=== PATIENT | female | born 1935 | race Caucasian/White ===

== ENCOUNTER 2017-05-29 13:16 | Inpatient (IN) | payer MEDICARE, OTHER ==
[~2017-05-29] VITALS: Ht 162.6 cm; Wt 112.1 kg
[~2017-05-29 13:16] MED LIST: BENZ100C8 PO; DETROL LA4 M1 PO; DIGO125T73 PO; DILT240C85 PO; FURO-129 PO; Guaifenesin PO; METO25TA6 PO; POTA20TA16 PO; PRAM0.5T3 PO; PRAV40TA PO; WARF5TAB7 PO
[2017-05-29 13:20] VITALS: BP 113/81; PULSE 98; RESP 14; O2SAT 96
--- NOTE | 2017-05-29 13:29 | ED.REPORT ---
HPI-Trauma Minor / Fall Date of Service May 29, 2017 ED Provider: Zan Hernandez DO The patient is an 82 year old female with history of atrial fibrillation on Coumadin, hypertension, hyperlipidemia, and congestive heart failure, who was brought to the emergency department by her family after she had a ground level fall at home about 1-2 hours prior to arrival. The patient states she just all of sudden fell and is unsure why. She does not believe she slipped or tripped. She did not noticed dizziness, lightheadedness, chest pain or palpitations prior to the fall. She hit her head and left shoulder on a cedar chest. She did not lose consciousness. Nursing Notes Stated Complaint: FALL, POSSIBLE BROKEN CLAVICLE Chief Complaint: Extremity Trauma Nursing Notes Reviewed: Yes Allergies: Coded Allergies: codeine (Verified Allergy, Intermediate, Rash, 01/14/16) lisinopril (Verified Allergy, Intermediate, 01/14/16) CHITO cough Scheduled Aspirin (Aspirin) 81 Mg Tablet 81 MG PO DAILY Cholecalciferol (Vitamin D3) (Vitamin D) 1,000 Unit Tablet 2,000 UNIT PO DAILY Diltiazem ER (Cardizem CD) 240 Mg Cap.er.24h 240 MG PO DAILY Glucosamine Sulfate 2Kcl (Glucosamine) 1,000 Mg Tablet 1,500 MG PO BID Metoprolol Tartrate (Metoprolol Tartrate) 25 Mg Tablet 50 MG PO BID Multivitamin (Once Daily) 1 Each Tablet 1 EACH PO DAILY Grady-3/Dha/Epa/Fish Oil (Fish Oil 1,000 mg Softgel) 1 Each Capsule 1 EACH PO BID Potassium Chloride ER (Klor-Con 10) 10 Meq Tablet 30 MEQ PO BID Pravastatin (Pravastatin) 40 Mg Tablet 40 MG PO HS Tolterodine Tartrate ER (Detrol LA) 4 Mg Capsule 4 MG PO DAILY Torsemide (Torsemide) 10 Mg Tablet Unknown Dose PO DAILY Warfarin Sodium (Warfarin Sodium) 2.5 Mg Tablet 2.5 MG PO SUN,MON,WED,FRI Warfarin Sodium (Warfarin Sodium) 5 Mg Tablet 5 MG PO ,,SAT General Time Seen by MD: 13:28 Chief Complaint Fall, Head injury, Extremity pain Hx Obtained From: Patient, Other family... Arrived By: Walk-in Onset Occurred: 1 - 4 hours ago Symptom Duration: 1 - 15 minutes Location: Head Shoulder left Quality: Painful Severity: Current: Moderate Severity: Maximum: Moderate Recent Healthcare: No recent hospitalization Similar Sx Previous: No Past Medical History Past Medical History High cholesterol Reports: Congestive heart failure, Hypertension Reports: Atrial fibrillation Past Surgical History Denies Family History Noncontributory Smoking History Never Smoker Social History Alcohol Use: "Social" Drug Use: Denies drug use Other Social History: Good social support, Local resident Ambulatory Status Independent Review of Systems Musculoskeletal: Reports: Joint pain Neurologic: Reports: Headache, Denies: Change LOC, Dizziness, Lightheaded, Syncope Complete sys rev & neg: except as marked. Cardiovascular: Denies: Chest pain, Palpitations Physical Exam Initial Vital Signs Vital Signs (First) Date Time Temp Pulse Resp B/P Pulse Ox O2 Delivery O2 Flow Rate FiO2 05/29/17 13:20 36.3 98 14 113/81 96 Room Air Initial VS: Reviewed ENT: Mucous membranes moist, Conjunctiva normal, No scleral icterus Abdomen / GI: Soft, Non-tender, No guarding, No rebound, No distention Lymphatic: No lymphadenopathy Extremities: Vascular intact, Neuro intact, No swelling, No tenderness Skin: Warm, Dry, No cyanosis Neurologic: Alert, Oriented, Nonfocal Psychiatric: Mood/affect normal, Behavior normal, Normal thought content General/Constitutional: Awake, Alert Appearance / Presentation: Positive: Uncomfortable Neck: Atraumatic, Supple, Full range of motion, No swelling, Non-tender, No midline vertebral tend Head / Eyes: Atraumatic, Normocephalic, PERRL, EOMI Respiratory / Chest: Breath sounds NL, Breath sounds = bilat, No respiratory distress, No rales, No rhonchi, No wheezing, No retractions Extensive soft tissue swelling over the left clavicle. Cardiovascular: Heart rate NL, Heart sounds NL, No gallop, No murmurs, No rubs Heart Rate / Rhythm: Positive: Irregular rhythm Interpretation & Diagnostics Lab Results Interpretation Result Diagram: 05/29/17 1845 05/29/17 1415 Test 05/29/17 14:15 05/29/17 17:30 05/29/17 18:45 White Blood Count 14.7th/mm3 (3.8-10.1) Red Blood Count 5.22mil/mm3 (3.90-5.20) Mean Corpuscular Volume 87.9fL (81-100) Mean Corpuscular Hemoglobin 29.9pg (27.0-35.0) Mean Corpuscular Hemoglobin Concent 34.0% (32.0-37.0) Red Cell Distribution Width 13.6% (12.3-15.4) Platelet Count 275bil/L (150-400) Neutrophils (%) (Auto) 80.1% (40-74) Lymphocytes (%) (Auto) 10.9% (14-46) Monocytes (%) (Auto) 7.8% (4-12) Eosinophils (%) (Auto) 0.7% (0-5) Basophils (%) (Auto) 0.3% (0-3) Prothrombin Time 39.2sec (8.1-12.5) Prothromb Time International Ratio 3.57ratio Sodium Level 138mEq/L (134-144) Potassium Level 3.5mEq/L (3.5-5.2) Chloride Level 97mEq/L (97-108) Carbon Dioxide Level 24mmol/L (18-29) Blood Urea Nitrogen 26mg/dL (8-27) Creatinine 1.16mg/dL (0.57-1.00) Estimat Glomerular Filtration Rate 64mL/min (>59) Glucose Level 143mg/dL (60-99) Calcium Level 10.4mg/dL (8.5-10.1) Magnesium Level 2.3mg/dL (1.6-2.6) Total Bilirubin 0.8mg/dL (0.0-1.2) Aspartate Amino Transf (AST/SGOT) 26U/L (0-50) Alanine Aminotransferase (ALT/SGPT) 24U/L (0-32) Alkaline Phosphatase 132U/L (25-165) Total Protein 7.9g/dL (6.4-8.4) Albumin 4.1g/dL (3.4-5.0) Urine Color Yellow (YELLOW) Urine Appearance Clear (CLEAR,HAZY) Urine pH 5.0 (5.0-8.0) Urine Specific [place] 1.010 (1.003-1.035) Urine Protein Negativemg/dL (NEG,TRACE) Urine Glucose (UA) Negativemg/dL (NEGATIVE) Urine Ketones Negativemg/dL (NEGATIVE) Urine Occult Blood Trace (NEGATIVE) Urine Nitrite Negative (NEGATIVE) Urine Bilirubin Negative (NEGATIVE) Urine Urobilinogen Normalmg/dL (NORMAL) Urine Leukocyte Esterase Small (NEGATIVE) Urine RBC 3-10/hpf (0-2) Urine WBC 6-10/hpf (0-5) Urine Epithelial Cells Few/hpf (NONE-MOD) Urine Crystals None seen (NONE SEEN) Urine Bacteria Moderate/hpf (NONE-FEW) Urine Hyaline Casts None/lpf (NONE) Urine Granular Casts None seen (NONE SEEN) Urine Waxy Casts None seen (NONE SEEN) Urine Red Blood Cell Casts None seen (NONE SEEN) Urine White Blood Cell Casts None seen (NONE SEEN) Urine Mucus None seen (None Seen) Urine Trichomonas None seen (NONE SEEN) Urine Yeast None (NONE SEEN) Urinalysis Comment None Urine Culture Reflexed Indicated Hemoglobin 15.2g/dL (12.0-15.6) Hematocrit 44.0% (35.0-46.0) ECG Interpretation ECG Interpretation: Atrial fibrillation with a rate of [address] changes Unchanged from prior Time: 14:05 Interpreted by: ED physician X-Ray Chest Interpretation Chest Xray Interpretation: IMPRESSION: 1. Acute disease is not appreciated in the lungs. 2. Probable thyroid nodule or goiter deviating the trachea from left to right, clinical correlation needed. 3. Medial left clavicular fracture. Dictated by: Jesus Griffith M.D. on 05/29/2017 at 14:16 Interpretation / Wet Read by: Interpret - Radiologist X-Ray Interpretation Xray Interpretation: IMPRESSION: Osteoporotic bones. Probable fracture medial end of left clavicle. Dictated by: Jesus Griffith M.D. on 05/29/2017 at 14:09 X-Ray Ordered: Clavicle left Interpretation / Wet Read by: Interpret - Radiologist CT Head Interpretation IMPRESSION: No acute intracranial abnormalities. Left scalp hematoma formation. Dictated by: Dilan Romero M.D. on 05/29/2017 at 13:12 Study: Head CT no contrast Interpretation / Wet Read by: Interpret - Radiologist CT Chest Interpretation IMPRESSION: 1. There is a comminuted medial left clavicle fracture, with displacement of the fracture margins by approximately 2 cm anteriorly at the fracture plane. The sternoclavicular joint appears free of traumatic disruption. 2. At time of CT scanning there is definite ongoing hemorrhage and a small area within the fracture margins, with overlying hematoma and extravasation of hemorrhage/bruising in the subcutaneous fat anterior to the left medial clavicle. The active bleeding is small in overall quantity at time of scanning, and this currently is producing a mild to moderate degree of immediate adjacent mass effect. 3. A complicating factor is the presence of a slowly enlarging large left thyroid mass, currently measuring up to 7.6 x 6.4 x 7.7 cm. This mass does not appear to have been displaced to a greater degree of rightward by the left medial clavicular fracture-related hematoma. Close clinical followup is recommended to ensure that further mass effect from expanding hematoma does not develop, given the pre-existing significant rightward deviation of the tracheal airway and at least 50% reduction in transverse dimension of the tracheal airway secondary to the thyroid mass. The degree of tracheal deviation and stenosis appears to have only slightly worsened from the comparison CT scan from 01/31/11. These findings were discussed in detail with the emergency room physician caring for the patient. Dictated by: Carlos Garcia M.D. on 05/29/2017 at 15:39 Study type: Chest CT w contrast Interpretation / Wet Read by: Interpret - Radiologist, Discussed w radiologist Re-Eval/Medical Decision Med Decision/Clinical Course 82-year-old on warfarin with a supratherapeutic INR with a fall of unclear significance and associated left clavicle fracture with a hematoma with active extravasation. Vitamin K and FFP are given to bring the INR into a more therapeutic range. Shoulder is put into a sling. Ortho is consulted as well as the patient will be admitted to medicine. Source of Hx: Old records, Family Re-Evaluation/Progress #1: Time of Eval: 14:43 Re-Evaluation/Progress Note: Rechecked the patient. Discussed results and plan for chest CT with the patient and her family. She is requesting additional meds for better pain control. Re-Evaluation/Progress #2: Time of Eval: 17:07 Re-Evaluation/Progress Note: Rechecked the patient. Discussed plan for admission with the patient and family. All questions were addressed. Consultation #1: Referral / Consult Name: Willem Lauren MD Consulted With: Surgeon Call Returned at: 16:42 Note: He recommends admitting to medicine with ortho consult. Consultation #2: Referral / Consult Name: Craig Jenkins DO Consulted With: Orthopedic Call Returned at: 17:07 Senior Animator: Will see patient, Agrees with eval, Agrees with plan Note: Agrees to consult. Consultation #3: Referral / Consult Name: Citlali Henderson DO Consulted With: Hospitalist Requested Call at: 17:07 Call Returned at: 17:53 Senior Animator: Will see patient, Agrees with eval, Agrees with plan, Accepts admit Counseled Regarding: Diagnosis, Lab results, Need for admission Discharge & Departure Impression: Primary Impression: Fall Encounter type: initial encounter Qualified Code: W19.XXXA - Unspecified fall, initial encounter Additional Impressions: Head injury Encounter type: initial encounter Qualified Code: S09.90XA - Unspecified injury of head, initial encounter Closed left clavicular fracture Encounter type: initial encounter Clavicle location: unspecified part of clavicle Fracture alignment: nondisplaced Qualified Code: S42.002A - Fracture of unspecified part of left clavicle, initial encounter for closed fracture Hematoma Warfarin-induced coagulopathy Disposition: ADMITTED TO HOSPITAL Discharge Condition All VS Reviewed: Yes Condition: Stable Referrals: Dami Oh MD (PCP) Scribe Attestation Portions of this note were transcribed by Anabella Suarez. I, Dr. Hernandez personally performed the history, physical exam and medical decision-making; I reviewed and confirmed the accuracy of the information in the transcribed note. Signed by: Joaquin Aburto, 05/29/17 at 1800. copies to: Dami Oh MD, Timothy S DO May 29, 2017 13:29 Anabella Suarez May 29, 2017 13:35
[2017-05-29] MEDS ORDERED: Ondansetron 2 mg/mL 2 mL Inj IVPUSH ONE (13:35)
--- NOTE | 2017-05-29 14:16 | DRSVH ---
PROCEDURE: CT BRAIN WITHOUT CONTRAST ([id number]) INDICATIONS: 82 year-old female with head injury on Coumadin. TECHNIQUE: Noncontrast 4.5 mm thick angled axial sections acquired from the foramen magnum to the vertex, with c oronal reformats. COMPARISON: None. FINDINGS: Image quality: Excellent. CSF spaces: Basal cisterns are patent. No extra-axial fluid collections. Ventricles are normal in size and shape. Brain: No midline shift. No intracranial masses or hemorrhage. Martel-white matter interface is norm al. There is intracranial internal carotid artery atherosclerosis. Skull and face: Calvarium and visualized facial bones are intact, without suspicious lesions. There is a left scalp localized soft tissue swelling. Sinuses: Visualized sinuses and mastoids are clear. IMPRESSION: No acute intracranial abnormalities. Left scalp hematoma formation. Dictated by: Dilan Romero M.D. on 05/29/2017 at 13:12 Approved by: Dilan Romero M.D. on 05/29/2017 at 13:15
--- NOTE | 2017-05-29 14:17 | DRSVH ---
PROCEDURE: X-RAY LEFT CLAVICLE, COMPLETE ([id number]) INDICATIONS: fall, left upper chest/clavicle pain/swelling TECHNIQUE: 2 views of the clavicle were acquired. COMPARISON: None. FINDINGS: Bones: Bones are osteoporotic. Medial end of the body of the clavicle is not be fractured with the di stal/peripheral component slightly inferiorly displaced compared to the proximal component. No suspic ious bony lesions. Soft tissues: No suspicious soft tissue calcifications. IMPRESSION: Osteoporotic bones. Probable fracture medial end of left clavicle. Dictated by: Jesus Griffith M.D. on 05/29/2017 at 14:09 Approved by: Jesus Griffith M.D. on 05/29/2017 at 14:15
--- NOTE | 2017-05-29 14:19 | DRSVH ---
PROCEDURE: X-RAY CHEST ONE VIEW ([id number]) INDICATIONS: fall, left upper chest/clavicle pain/swelling TECHNIQUE: One view of the chest was acquired. COMPARISON: None. FINDINGS: Surgical changes and devices: None. Lungs and pleura: No pleural effusions or pneumothorax. Lungs are clear. Mediastinum: Trachea is deviated suggesting an enlarged thyroid may be present on the left displacing it to the right. Mediastinal contours appear normal. Heart size is normal. Bones and chest wall: Probable fracture medial end of the left clavicle with displacement. Overlying soft tissues appear unremarkable. IMPRESSION: 1. Acute disease is not appreciated in the lungs. 2. Probable thyroid nodule or goiter deviating the trachea from left to right, clinical correlation n eeded. 3. Medial left clavicular fracture. Dictated by: Jesus Griffith M.D. on 05/29/2017 at 14:16 Approved by: Jesus Griffith M.D. on 05/29/2017 at 14:17
[2017-05-29 14:39] LABS: BASOPHILS % (AUTO) 0.3 % (0-3); EOSINOPHILS % (AUTO) 0.7 % (0-5); MONOCYTES % (AUTO) 7.8 % (4-12); Mean Corpuscular Hemoglobin 29.9 pg (27.0-35.0); Mean Corpuscular Volume 87.9 fL (81-100); NEUTROPHILS % (AUTO) 80.1 % (40-74); Platelet Count 275 bil/L (150-400)
[2017-05-29 14:50] LABS: INR 3.57 ratio
[2017-05-29 14:53] VITALS: BP 104/61; PULSE 88; RESP 24; O2SAT 99
[2017-05-29 16:00] VITALS: BP 110/67; PULSE 112; RESP 20; O2SAT 95
--- NOTE | 2017-05-29 16:10 | DRSVH ---
PROCEDURE: CT CHEST WITH CONTRAST ([id number]) INDICATIONS: trauma, eval left upper chest and clavicle TECHNIQUE: After the administration of intravenous contrast, 5 mm thick sections acquired from the pulmonary api yovany to the posterior costophrenic angles. 7 mm thick coronal and sagittal MIP reformats were acquire d. For radiation dose reduction, the following was used: automated exposure control, adjustment of mA and/or kV according to patient size. COMPARISON: [facility], CR, XR CLAVICLE COMP LT, 05/29/2017, 13:33. [facility], CT, CHEST WITH CONTRAST, 01/31/2011, 14:29. FINDINGS: Image quality: Excellent. Lungs and pleura: No definite acute air space opacities but there is mild stranding at the left lung base potentially a manifestation of atelectasis or pulmonary contusion in the setting of trauma. Ho wever, overlying left lateral lower rib fractures are not seen.. No pleural effusions or pneumothora x. Central and peripheral airways are patent and normal in caliber. Mediastinum: Heart size is normal. No pericardial effusion. No mediastinal or hilar adenopathy by size criteria but there is a large left-sided thyroid mass that was previously present during CT scan marin 01/31/11 with maximal AP and transverse dimensions of 6.1 x 6.0 cm with craniocaudad dimension of 6.7 cm. This large mass has further enlarged over the prior 6 years, now measuring up to 7.6 cm AP, 6.4 cm transverse, and 7.7 cm craniocaudad. Thoracic aorta and central pulmonary arteries are elisa l in size. Esophagus is normal in caliber. No hiatal hernia. Bones and chest wall: No suspicious bony lesions. No vertebral body compression fractures. There i s a mildly comminuted and moderately displaced medial left clavicle fracture, and during CT scanning a small amount of active extravasation of contrast enhanced blood is seen within the area of fracture , which is comprised of both bone fragments and hematoma. Overlying contusion/hematoma extends in th e subcutaneous fat in this area, centered on series 3 image 17. The active extravasation of blood is seen both on the axial and coronal 3 formation imaging, with coronal imaging demonstrating this on s eries 4 image 18. No axillary or supraclavicular adenopathy by size criteria. Thyroid gland on the right appears normal but deviated rightward. As was previously the case there is significant rightwa rd deviation of the trachea and at least a 50% reduction in the transverse dimension of the trachea a long the medial border of the left thyroid mass, only slightly worsened since 2010. Abdomen: Visualized upper abdominal solid organs appear normal. Upper abdominal bowel loops are nor mal in caliber. IMPRESSION: 1. There is a comminuted medial left clavicle fracture, with displacement of the fracture margins by approximately 2 cm anteriorly at the fracture plane. The sternoclavicular joint appears free of tra umatic disruption. 2. At time of CT scanning there is definite ongoing hemorrhage and a small area within the fracture margins, with overlying hematoma and extravasation of hemorrhage/bruising in the subcutaneous fat ant erior to the left medial clavicle. The active bleeding is small in overall quantity at time of scann ing, and this currently is producing a mild to moderate degree of immediate adjacent mass effect. 3. A complicating factor is the presence of a slowly enlarging large left thyroid mass, currently me asuring up to 7.6 x 6.4 x 7.7 cm. This mass does not appear to have been displaced to a greater degr ee of rightward by the left medial clavicular fracture-related hematoma. Close clinical followup is recommended to ensure that further mass effect from expanding hematoma islas s not develop, given the pre-existing significant rightward deviation of the tracheal airway and at l east 50% reduction in transverse dimension of the tracheal airway secondary to the thyroid mass. The degree of tracheal deviation and stenosis appears to have only slightly worsened from the comparison CT scan from 01/31/11. These findings were discussed in detail with the emergency room physician jeffry roche for the patient. Dictated by: Carlos Garcia M.D. on 05/29/2017 at 15:39 Approved by: Carlos Garcia M.D. on 05/29/2017 at 16:08
[2017-05-29] MEDS ORDERED: Phytonadione (Adult) 10 mg/1 mL Inj PO ONE (17:10)
[2017-05-29 17:42] LABS: APPEARANCE,URINE CLEAR (CLEAR,HAZY); COLOR,URINE YELLOW (YELLOW); OCCULT BLOOD,URINE TRACE (NEGATIVE); UROBILINOGEN,URINE NORMAL (NORMAL)
[2017-05-29] MEDS ORDERED: WARF5TAB7 PO (18:12)
[2017-05-29] MEDS ORDERED: MULT-666 PO (18:12)
[2017-05-29] MEDS ORDERED: TORS10TA5 PO (18:12)
[2017-05-29] MEDS ORDERED: OMEG-38 PO (18:12)
[2017-05-29] MEDS ORDERED: GLUC100016 PO (18:12)
[2017-05-29] MEDS ORDERED: ASPI-973 PO (18:12)
[2017-05-29] MEDS ORDERED: WARF2.5T82 PO (18:12)
[2017-05-29] MEDS ORDERED: CHOL100043 PO (18:12)
[2017-05-29] MEDS ORDERED: POTA10TA7 PO (18:13)
[2017-05-29 18:15] VITALS: BP 105/72; PULSE 106; RESP 20; O2SAT 94
--- NOTE | 2017-05-29 18:28 | PCM.HPMED ---
Subjective Date of Service May 29, 2017 Primary Provider: Admitting Physician: Primary Care Physician: Dami Oh MD Attending Physician: Admit Status: From the Emergency Department Chief Complaint: Ground-level fall History of Present Illness: This is a 82-year-old white female with past medical history of atrial fibrillation for which she is on Coumadin, congestive heart failure , hypertension, hyperlipidemia, restless leg syndrome is presenting after suffering a fall at home. Fall occured 1-2 hours prior to arrival. Patient does not know why or how she fell but daughter is thinking it may be that she shuffles her feet sometimes and her feet may have gotten called up in the carpet material. Patient has been falling has fallen 2 times in the last 4-5 years ago was She was crawling on the ground for 45 minutes trying to get the number to phone her son. Patient denies any recent infections, fevers, chills but states that she did not eat all day prior to this. She lives alone in a trailer with a granddaughter who lives nearby. Patient is able to walk independently at baseline patient says that right after she fell, she felt some numbness in her shoulder and felt pain thereafter. She says that she occasionally feels dizzy but denies any active chest pain, shortness of breath, diarrhea, constipation, nausea, vomiting. She denies urinary symptoms. She has no headaches. Patient denies losing consciousness during this fall. In the ER, white count is elevated at 14.7 creatinine 1.[address] changes chest x-ray showed medial left clavicular fracture, and thyroid nodular goiter deviating the trachea and left to right, osteoporosis. CT of chest was performed that showed comminuted left clavicular fracture with displacement of fracture by 2 cm anteriorly at the fracture plane. After patient had an echocardiogram in 01/16/16 that showed 60-65% ejection fraction, right ventricular dilation, 51 mm of pulmonary pressures, severe biatrial enlargement. Patient sees Dr. Najera in [place] for cardiology patient does not have a PCP but is trying to get in with us [facility] residency Review of Systems: Complete review of systems performed, pertinent positives and negatives per history of present illness, all other systems reviewed and are negative. Allergies Coded Allergies: codeine (Verified Allergy, Intermediate, Rash, 01/14/16) lisinopril (Verified Allergy, Intermediate, 01/14/16) CHITO cough Home Medications Trach patient's home medications include metoprolol tartrate 50 mg twice a day, potassium chloride 3 tablets 3 times a day, Dilaudid and 4 mg, warfarin, torsemide 10 mg twice a day Cartia 240 mg, aspirin to 81 mg, PMH Past medical history remarkable for [place] barcenas which is on Coumadin, H FBS, hypertension, hyperlipidemia Family History Mom with cancer at age 64 she also had heart disease Father at 89 of old age, he had emphysema Social History Hx Alcohol Use: No Hx Substance Use: No Hx Tobacco Use: No Smoking Status: Never Smoker Living Arrangement: Alone Exam Vital Signs Vital Sign - Last Date Time Temp Pulse Resp B/P Pulse Ox O2 Delivery O2 Flow Rate FiO2 05/29/17 14:53 88 24 104/61 99 Room Air 05/29/17 13:20 36.3 Exam General: NAD, sitting up in bed HEENT: NCAT, the case back over her clavicle Eyes: [place] conjunctivae. No ptosis, PERRL Neck: No masses, trachea midline, left-sided thyromegaly, large bulging hematoma over the medial left clavicle. Bruising is noted Lungs: CTA with normal respiratory effort, no crackles or wheezes anteriorly CV: Tachycardic, no murmurs/rubs/gallops, normal PMI GI: Soft, non-tender with no hepatosplenomegaly MSK: Normal gait and station, no digital cyanosis Skin: Warm and dry. No rash, lesions or ulcers Psych: A&O X3, with appropriate affect Lab and Diagnostics Result Diagram: 05/29/17 1415 05/29/17 1415 X-Rays, CTs and MRIs IMPRESSION: 1. There is a comminuted medial left clavicle fracture, with displacement of the fracture margins by approximately 2 cm anteriorly at the fracture plane. The sternoclavicular joint appears free of traumatic disruption. 2. At time of CT scanning there is definite ongoing hemorrhage and a small area within the fracture margins, with overlying hematoma and extravasation of hemorrhage/bruising in the subcutaneous fat anterior to the left medial clavicle. The active bleeding is small in overall quantity at time of scanning , and this currently is producing a mild to moderate degree of immediate adjacent mass effect. 3. A complicating factor is the presence of a slowly enlarging large left thyroid mass, currently measuring up to 7.6 x 6.4 x 7.7 cm. This mass does not appear to have been displaced to a greater degree of rightward by the left medial clavicular fracture-related hematoma. Close clinical followup is recommended to ensure that further mass effect from expanding hematoma does not develop, given the pre-existing significant rightward deviation of the tracheal airway and at least 50% reduction in transverse dimension of the tracheal airway secondary to the thyroid mass. The degree of tracheal deviation and stenosis appears to have only slightly worsened from the comparison CT scan from 01/31/11. These findings were discussed in detail with the emergency room physician caring for the patient. Dictated by: Carlos Garcia M.D. on 05/29/2017 at 15:39 Approved by: Carlos Garcia M.D. on 05/29/2017 at 16:08 PROCEDURE: CT BRAIN WITHOUT CONTRAST ([id number]) INDICATIONS: 82 year-old female with head injury on Coumadin. IMPRESSION: No acute intracranial abnormalities. Left scalp hematoma formation. Dictated by: Dilan Romero M.D. on 05/29/2017 at 13:12 Approved by: Dilan Romero M.D. on 05/29/2017 at 13:15 PROCEDURE: X-RAY CHEST ONE VIEW ([id number]) IMPRESSION: 1. Acute disease is not appreciated in the lungs. 2. Probable thyroid nodule or goiter deviating the trachea from left to right, clinical correlation needed. 3. Medial left clavicular fracture. Dictated by: Jesus Griffith M.D. on 05/29/2017 at 14:16 Approved by: Jesus Griffith M.D. on 05/29/2017 at 14:17 PROCEDURE: X-RAY LEFT CLAVICLE, COMPLETE ([id number]) INDICATIONS: fall, left upper chest/clavicle pain/swelling IMPRESSION: Osteoporotic bones. Probable fracture medial end of left clavicle. Dictated by: Jesus Griffith M.D. on 05/29/2017 at 14:09 Approved by: Jesus Griffith M.D. on 05/29/2017 at 14:15 12-lead ECG Nonspecific ST changes, she is tachycardic in the monitor with rhythm between 103 to 113, regular rhythm regular rhythm Cardiac Echo Impressions Reason For Study: HISTORY OF CONGESTIVE HEART FAILURE Ordering Physician: HOSPITALIST XIMENA Performed By: Misha Altamirano Referring Physician: Dr. Dami Oh Interpretation Summary The left ventricle is normal in size. Left ventricular systolic function is normal without focal wall motion abnormalities. The ejection fraction is estimated to be 60-65%. The right ventricle is borderline dilated. The right ventricular systolic function is normal. The right ventricular systolic pressure is estimated at 51 mmHg assuming a right atrial pressure of 8 mm Hg. There is severe biatrial enlargement. There is mild tricuspid regurgitation. There is mild pulmonic regurgitation. There is no other significant valvular heart disease. The aortic root is normal size. Reading Physician:PM Assessment & Plan This is a 82-year-old female with history of prior falls, cardiac history presenting today after suffering a fall ground-level fall due to unknown reasons , she has shown evidence of comminuted left clavicular fracture with displacement of fracture margin by 2 cm anteriorly at the fracture plane #Comminuted left clavicular fracture with displacement of fracture margin by 2 cm, present on admission -- Pain control with morphine 2-4 mg every 4 hours when necessary -- Oxycodone 4 mg every 4 hours when necessary -- Consult A orthopedic surgery, Dr. Craig Jenkins will see the patient tomorrow a.m. #Thyroid nodular goiter deviating the trachea, present on admission -- I have asked Dr. Garcia to consult trauma surgeon Dr. Lorenz from the ER #chronic atrial fibrillation, present on admission, treatment ongoing. -Check INR upon arrival to the floor and then in the am, she is given vitamin K 5 mg by mouth, 2 units of FFP in the ER -Continue home medication Cardizem #Leukocytosis likely due to lytic or mucoid reaction #chronic hypertension, present on admission, uncontrolled. -Continue patient's home medication Cardizem, metoprolol 50 mg twice a day #HF PEF chronic active -- Continue torsemide 10 mg by mouth once a day, potassium supplementation -- Continue statin, metoprolol #Chronic hyperlipidemia active -- Continue home medication pravastatin. Pain Evaluation: Adequate Pain Control Resuscitation Status: CPR: Attempt Resuscitation Time spent 45 minutes Citlali Henderson DO May 29, 2017 18:22
[2017-05-29] MEDS ORDERED: Alum-Mag Hydrox-Simeth 30 mL Suspension PO PRN (18:30)
[2017-05-29] MEDS ORDERED: Polyethylene Glycol (PEG) 17 Gm Powder PO PRN (18:30)
[2017-05-29] MEDS ORDERED: Ondansetron 2 mg/mL 2 mL Inj IVPUSH PRN (18:30)
[2017-05-29 20:23] VITALS: BP 121/41; PULSE 105; RESP 20; O2SAT 96
[2017-05-29 20:46] VITALS: BP 102/67; PULSE 91; RESP 20; O2SAT 92
[2017-05-29 21:01] LABS: INR 1.76 ratio
[2017-05-30] VITALS (8 sets, daily range): BP systolic 113–138; BP diastolic 61–79; PULSE 70–121; RESP 16–24; O2SAT 91–99
--- NOTE | 2017-05-30 01:32 | NUR ---
ADMIT NOTE Pt arrived to [facility] Room 3021 approx 2024. Pt alert and oriented, arrived w/ family. Pt able to ambulate from to bed, SBA. Pt placed on remote telemetry, property assessment monitor notified. Pt is comfortable, pain is "4" when laying down, "a whole other story when I move" per pt. Pt has ice pack to Left chest. Significant bruising and swelling to left upper chest, as well as some bruising on upper left back. Pt given evening PO medications. RT arrived to assist pt w/ setting up home CPAP, uses 2L at NOC per pt. Continue to monitor. Call light in reach. Bed alarm on. Intentional rounding.
--- NOTE | 2017-05-30 02:58 | CONS ---
[address] [address] CONSULTATION REPORT PATIENT: DEANNA MCQUEEN : 1935 MR#: [id number] ADMIT: 05/29/2017 JOB ID: [id number] DATE OF SERVICE: 05/29/2017 CONSULTATION REQUESTED BY: Citlali Henderson D.O. HISTORY OF PRESENT ILLNESS: The patient is an eight pleasant 82-year-old female. She has atrial fibrillation and is on anticoagulation. She fell and suffered a comminuted left clavicular fracture. She had a CT scan, which showed an incidental thyroid goiter causing tracheal compression. She told me that she is on thyroid replacement although it is not listed on her med reconciliation form. She has no history of stridor or difficulty breathing, voice change or dysphagia. Her CT scan of her chest shows slowly enlarging thyroid goiter measuring 7 x 6 x 6.4 x 7. There is tracheal deviation to the right. She has never had thyroid surgery. PAST MEDICAL HISTORY: Illnesses: 1. Comminuted left clavicular fracture. 2. Anticoagulation status. 3. Atrial fibrillation. 4. Right ventricular dilatation. 5. Severe biatrial enlargement. 6. Obstructive sleep apnea, uses a CPAP. SOCIAL HISTORY: She lives alone. She denies alcohol or tobacco. ALLERGIES: 1. CODEINE. 2. LISINOPRIL. REVIEW OF SYSTEMS: Otherwise negative. PHYSICAL EXAMINATION: GENERAL: Pleasant, alert. She has her CPAP machine on, no distress. VITAL SIGNS: BMI 40.5, temperature 36.9, brachial blood pressure 102/67, pulse 91, respiratory rate 20, O2 sat is 92%. HEENT: PERRLA, EOMI. No exophthalmos. NECK: There is a left neck mass and I do think that I can appreciate deviation of the trachea to the right. LYMPH NODES: I do not appreciate any cervical adenopathy. LEFT CLAVICLE: Covered by a large ice pack. LUNGS: Clear. CARDIAC EXAM: Regular rhythm. EXTREMITIES: No edema. SKIN: No rashes or jaundice. IMPRESSION: Large left thyroid nodule. It has been there a long time. It is asymptomatic. She is unremarkable aware of it. Nothing emergent needs to be done regarding it. PLAN: After discharge she should be given an appointment to follow up with me in my office for further discussion.
[2017-05-30 04:52] LABS: BASOPHILS % (AUTO) 0.2 % (0-3); EOSINOPHILS % (AUTO) 1.4 % (0-5); Mean Corpuscular Hemoglobin 30.1 pg (27.0-35.0); Mean Corpuscular Volume 88.9 fL (81-100); Platelet Count 241 bil/L (150-400)
[2017-05-30 05:17] LABS: INR 1.54 ratio
--- NOTE | 2017-05-30 05:42 | NUR ---
PAIN Pt has c/o intermittent "achey" pain in left chest. Pt states ice has been effective. Pt has been given prn po tylenol and oxycodone. Pt has rated pain "4-7", and "no pain" during post pain medication administration assessment. Edema continues to left chest, bruising has become more prominent than initial assessment. Continue to monitor. Call light in reach. Bed alarm on. Intentional rounding.
[2017-05-30] MEDS: Diltiazem CD 240 mg ER24 Capsule PO SCH (08:05)
[2017-05-30] MEDS: Tolterodine ER 4 mg ER24 Capsule PO SCH (08:05)
--- NOTE | 2017-05-30 12:29 | CONS ---
[address] [address] CONSULTATION REPORT PATIENT: DEANNA MCQUEEN : 1935 MR#: [id number] ADMIT: 05/29/2017 JOB ID: [id number] DATE OF SERVICE: 05/30/2017 ORTHOPEDIC CONSULTATION: REASON FOR CONSULTATION: To initiate fracture care for the patients medial clavicle shaft fracture. CHIEF COMPLAINT: Left shoulder pain. HISTORY OF PRESENT ILLNESS: This is a pleasant 82-year-old, [id number] female that presents with a day long history of left shoulder pain, mainly overlying the medial clavicle. She was walking out of the bathroom. She is unsure of exactly what happened. She was dizzy and hit the cedar chest directly onto her anterior shoulder. She had pain and swelling and presented to the emergency department. X-rays were obtained at that time that did not demonstrate much for any fractures or dislocations. A CT next was obtained due to the amount of swelling. She demonstrates a mildly displaced medial clavicular shaft fracture with hematoma. Orthopedics was thus consulted. The patient did demonstrate a supratherapeutic INR and thus the emergency department physician did give her some medications to lower that in hopes to decrease the amount of bleeding she was getting to the anterior aspect of the chest. The patient is doing well. She states that overnight the swelling has decreased significantly. She has pain to the medial aspect of the clavicle. There was a sling that was originally placed but she no longer has the sling on currently in the room. She denies any numbness or tingling. She denies any other associated injuries. PAST MEDICAL HISTORY: Hypertension, hyperlipidemia, COPD, sleep apnea, and chronic AFIB. PAST SURGICAL HISTORY: Hysterectomy, appendectomy, partial thyroidectomy, right total knee arthroplasty. FAMILY HISTORY: Noncontributory. SOCIAL HISTORY: The patient denies any tobacco utilization. Drinks occasionally. Denies any illicit drug use. Lives at home by herself but her granddaughter is present on the property and recently moved onto the property. MEDICATIONS: Please see electronic medical record for a list of the patient's medications. ALLERGIES: LISINOPRIL, CODEINE. REVIEW OF SYSTEMS: The patient denies any fevers, sweats, chills, chest pain, shortness of breath nausea, vomiting, diarrhea. Complains mainly of left medial clavicular pain as described in the history of present illness. PHYSICAL EXAMINATION: General: The patient is alert, oriented, in no apparent distress. HEENT: Normocephalic, atraumatic. Extraocular movements intact. Nares patent. Lungs: No audible wheezes. No signs of respiratory distress. Neuro: Cranial nerves 2-12 are intact. Extremities: Gross observation of the patient's left shoulder: She has some mild ecchymosis and swelling to the medial clavicle, with tenderness to palpation of the medial clavicle. She demonstrates palpable distal radial and ulnar pulses and has intact sensation in the axillary, median, and radial ulnar nerve distribution. Range of motion of the shoulder is deferred secondary to the pain to the medial clavicle. There is no tenderness to the acromioclavicular joint or surrounding the elbow, wrist, or hand, including the distal radius and ulna and the anatomic snuffbox. DIAGNOSTIC STUDIES: Two views of the patient's chest, as well as the clavicle, in a CT demonstrates a mildly comminuted medial clavicular shaft fracture with mild anterior translation of the clavicle. IMPRESSION: Left medial shaft clavicle fracture. PLAN: Discussed with the patient as well as her granddaughter the treatment plan as the fracture is only mildly displaced and should heal well with conservative treatment. I would like her to be in the sling at all times except for when bathing. She is to follow up in the office in two weeks. We will repeat x-rays of the clavicle at that time and likely start initiating range of motion of the elbow at that time. She will be in the sling for six weeks from her injury date before initiating any shoulder range of motion exercises. While in the hospital I would like her to have ice placed overlying the medial clavicle for 30 minutes every 3 hours while awake.
[2017-05-30 14:10] LABS: INR 1.25 ratio
[2017-05-30] MEDS: 0.9% Sodium Chloride 1,000 ML IV SCH (14:25)
--- NOTE | 2017-05-30 16:10 | NUR ---
Social work note - Initial Assessment Yenifer Melo is a 82 yr old admitted for fall - clavicle fx and hematoma. EMR reviewed: Pt has [employer] plan insurance, her PCP is Dr Oh. DPOA paperwork in EMR. No LTC or VA benefits. Readmit score is 3. See attached CM initial assessment. COLORIST FORMULATOR met with pt - introduced D/C planning and explained SW role. Pt lives at home in [place]. Her grand daughter is staying with her for help and her son lives a block away. She is independent at baseline - uses no DME. She does not drive. She has used [facility] in the past - does not think it would be necessary at this time. She plans to d/c home with family when medically stable - MD anticipates 2-3 per multidisciplinary rounds. COLORIST FORMULATOR will continue to follow for home needs. Plan: Home with family in [place] Addendum: 05/30/17 at 1614 by DAVION GUY SS Amended: Links added.
[2017-05-30] MEDS ORDERED: MeTOProlol 1 mg/mL 5 mL Inj IVPUSH ONE (17:55)
--- NOTE | 2017-05-30 18:19 | CONS ---
[address] [address] CONSULTATION REPORT PATIENT: DEANNA MCQUEEN : 1935 MR#: [id number] ADMIT: 05/29/2017 JOB ID: [id number] DATE OF SERVICE: REFERRING PHYSICIAN: Dr. Henderson, hospitalist. REASON FOR CONSULTATION: Evaluation for bleeding disorder. HISTORY OF PRESENT ILLNESS: The patient is a very pleasant, 82-year-old female admitted to [facility] on May 29, 2017 after she had a fall in her bathroom. The patient was not aware of any loss of consciousness, but she also states that she is not sure. She was able to call for assistance which led to her evaluation in the emergency department. The patient presented with left shoulder and clavicle pain. Admitting imaging studies, including CT of the chest, identifying a comminuted medial left clavicular fracture with positive extravasation of small amounts of blood reported. Also reported was an enlarging thyroid mass as compared to a previous CT scan done six years ago, measuring approximately 76 x 64 x 77 mm, with significant rightward deviation of the trachea and 50% reduction in the transverse dimension of the trachea. The lesion has grown approximately [address] scan dated January 31, 2011. CT of the brain also done on admission reporting no acute abnormalities, left scalp hematoma. Laboratory evaluation reporting a PT and INR of 39.2 and 3.57, respectively. The patient is currently on Coumadin for chronic atrial fibrillation. Admitting CBC reporting a white blood cell count of 14.7, hemoglobin of 15.4, hematocrit of 45.9, and platelet count of 275. MCV, MCH and MCHC normal at 87, 29, and 34, respectively. The patient was subsequently given FFP in the emergency department to correct her hypercoagulability. Subsequent INR on May 30, 2017, at 1.25. In addition, hemoglobin has been watched serially over the past 24 hours, ingrid down to 12.5 on May 30 at 0100, improving to 13.8 on May 30 at 13:45. The patient has not received any blood transfusions while in the hospital. Clinically, she is feeling well. Sitting up in bed, eating her dinner. Her affect was appropriate. She states that she has had a prior episode of a fall while in the hallway. She does not remember any specifics of the incident. Otherwise, she is not aware of any unusual bruising or bleeding; specifically, any dark tarry stools, bloody noses or bleeding when she brushes her teeth. She has had multiple surgeries and dental procedures and denies any awareness of any bleeding complications or need for blood transfusions. REVIEW OF SYSTEMS: The remainder of her review of systems today was otherwise negative. ALLERGIES: 1. LISINOPRIL. 2. CODEINE. PRESCRIPTION MEDICATIONS: Include: 1. Coumadin 2.5 mg, Thursday, Thursday, Thursday and Thursday, and 5 mg all other days. 2. Diltiazem 240 mg daily. 3. Metoprolol 25 mg daily. 4. Pravastatin 40 mg at night. 5. Aspirin 81 mg daily. 6. Torsemide 10 mg daily. 7. Tolterodine 4 mg daily. PAST MEDICAL HISTORY: Significant for: 1. Elevated INR at on May 30 as described above. Workup underway. 2. Chronic atrial fibrillation with the CHADS2 score of 2, giving her an ischemic stroke rate per year of 4.2%. Her last echocardiogram was on January 16, 2016, reporting an EF of 60% to 65% with an RVSP markedly elevated at 51 mmHg. There was thereby atrial enlargement as well as some mild tricuspid regurg. 3. Hypertension. 4. Hyperlipidemia. 5. COPD. The patient is a never smoker. Her diagnosis was made by "a specialist in [place]." She remembers undergoing a PFT test. 6. Sleep apnea. 7. Thyroid mass. PAST SURGICAL HISTORY: Significant for hysterectomy and appendectomy. SOCIAL HISTORY: She lives alone independently with good family support. Denies any tobacco history. Occasionally drinks alcohol. FAMILY HISTORY: She has four children. She is not aware of any family history of cancer, blood disorders or bleeding disorders. PHYSICAL EXAMINATION: Vital signs today reporting a weight of 95.4 kg, a blood pressure of 138/79, temperature 36, pulse is 121, respiratory rate is 16 and she is saturating at 92% on room air. She is A and O x3. In good spirits overall. Affect appropriate. Palpation of the neck with at least a 3 cm left thyroid nodule appreciated. No lower extremity swelling seen. No bruising or bleeding in the skin noted. ADDITIONAL LABORATORY DATA: Dated May 29, 2017, reporting a sodium 138, potassium 3.5, serum creatinine 1.16. Calcium 10.4, AST 26, ALT 24, alk phos 132. ASSESSMENT AND PLAN: The patient is a very pleasant, 82-year-old female suffering a comminuted left clavicle fracture on May 29, 2017, after a fall in her bathroom. A small extravasation of blood was seen on admitting CT scan of the chest, and patient presented with a supratherapeutic INR of 3.57 on admission. The patient is currently on Coumadin for chronic atrial fibrillation with a CHADS score of 2. The patient was given FFP in the emergency department with normalization of her INRs currently at 1.25. She is back on her Coumadin at this time. The patient's past medical history and review of systems is significant for the absence of any bleeding complications after surgical procedures, including dental. In addition, the patient's family history is unremarkable for any bleeding disorder. The patient's hemoglobin over the past 24-36 hours has stabilized, all within the normal range. The patient unlikely has an underlying bleeding diathesis. Would recommend repeating a PT, INR and a PTT on May 31, 2017, to evaluate her vitamin K coagulation factors. A thrombin time to evaluate her ability to convert her formed thrombin as well as a fibrinogen level. Further evaluation of her platelet function disorder can be made as an outpatient, if appropriate. In regards to her anticoagulation, given her CHADS2 score of 2, with a 4.2% risk of stroke, would recommend obtaining an MRI/MRA brain. If normal, hold her Coumadin for the next week. Continue to follow INR as an outpatient. Vitamin K supplement if needed. Finally, the patient has a significant enlarging left thyroid mass which is causing not only right tracheal deviation but a 50% reduction in caliber. Tissue diagnosis and surgical management. If the biopsy can be done in-house, that would be convenient. ADITHYA
--- NOTE | 2017-05-30 18:43 | NUR ---
Behavior Pt was found out of bed with bed alarm sounding, when asking pt if ok, pt stated, "I need to find out where my family is." When asked is pt knows current location, pt stated "at your house." This RN and INGOT CASTER got pt back to bed, and reeducated on using call light. Pt was reoriented and realized the confusion, let pt know it was ok and not to worry. Will continue to monitor.
[2017-05-31] VITALS (9 sets, daily range): BP systolic 99–142; BP diastolic 61–90; PULSE 84–124; RESP 18–20; O2SAT 91–96
--- NOTE | 2017-05-31 00:15 | PCM.PNMED ---
Subjective Date of Service May 30, 2017 Subjective Patient is seen and examined, her grand daughter is present in the room, patient states pain is well controlled, wants to know when she can go home. H&H dropped by 3 points this am but stable. She is seen by Dr. Lauren and Dr. Jenkins so far. Exam Vital Signs Vital Sign - Last Date Time Temp Pulse Resp B/P Pulse Ox O2 Delivery O2 Flow Rate FiO2 05/30/17 08:59 36.4 113 20 117/74 92 Room Air 05/30/17 04:34 2.00 Intake and Output 05/29/17 05/29/17 05/30/17 Cumulative From/Thru 15:00 23:00 07:00 05/29/17 13:20 - 05/30/17 06:13 Intake Total 614 ml 150 ml 764 ml Output Total 400 ml 400 ml Balance 614 ml -250 ml 364 ml Intake Oral 150 ml 150 ml IV Total 614 ml 614 ml Output Urine Total 400 ml 400 ml Exam General: NAD, sitting up in bed HEENT: NCAT, the case back over her clavicle Eyes: [place] conjunctivae. No ptosis, PERRL Neck: No masses, trachea midline though imaging showed concern, left-sided thyromegaly, hematoma over the medial left clavicle improved. Bruising is noted Lungs: CTA with normal respiratory effort, no crackles or wheezes anteriorly CV: Tachycardic, no murmurs/rubs/gallops, normal PMI GI: Soft, non-tender with no hepatosplenomegaly MSK: Normal gait and station, no digital cyanosis Skin: Warm and dry. Psych: A&O X3, with appropriate affect IVs and Medications Medications Reviewed: Medications were reviewed in detail Lab and Diagnostics Result Diagram: 05/30/17 0911 05/30/17 0420 X-Rays, CTs and MRIs IMPRESSION: 1. There is a comminuted medial left clavicle fracture, with displacement of the fracture margins by approximately 2 cm anteriorly at the fracture plane. The sternoclavicular joint appears free of traumatic disruption. 2. At time of CT scanning there is definite ongoing hemorrhage and a small area within the fracture margins, with overlying hematoma and extravasation of hemorrhage/bruising in the subcutaneous fat anterior to the left medial clavicle. The active bleeding is small in overall quantity at time of scanning , and this currently is producing a mild to moderate degree of immediate adjacent mass effect. 3. A complicating factor is the presence of a slowly enlarging large left thyroid mass, currently measuring up to 7.6 x 6.4 x 7.7 cm. This mass does not appear to have been displaced to a greater degree of rightward by the left medial clavicular fracture-related hematoma. Close clinical followup is recommended to ensure that further mass effect from expanding hematoma does not develop, given the pre-existing significant rightward deviation of the tracheal airway and at least 50% reduction in transverse dimension of the tracheal airway secondary to the thyroid mass. The degree of tracheal deviation and stenosis appears to have only slightly worsened from the comparison CT scan from 01/31/11. These findings were discussed in detail with the emergency room physician caring for the patient. Dictated by: Carlos Garcia M.D. on 05/29/2017 at 15:39 Approved by: Carlos Garcia M.D. on 05/29/2017 at 16:08 PROCEDURE: CT BRAIN WITHOUT CONTRAST ([id number]) INDICATIONS: 82 year-old female with head injury on Coumadin. IMPRESSION: No acute intracranial abnormalities. Left scalp hematoma formation. Dictated by: Dilan Romero M.D. on 05/29/2017 at 13:12 Approved by: Dilan Romero M.D. on 05/29/2017 at 13:15 PROCEDURE: X-RAY CHEST ONE VIEW ([id number]) IMPRESSION: 1. Acute disease is not appreciated in the lungs. 2. Probable thyroid nodule or goiter deviating the trachea from left to right, clinical correlation needed. 3. Medial left clavicular fracture. Dictated by: Jesus Griffith M.D. on 05/29/2017 at 14:16 Approved by: Jesus Griffith M.D. on 05/29/2017 at 14:17 PROCEDURE: X-RAY LEFT CLAVICLE, COMPLETE ([id number]) INDICATIONS: fall, left upper chest/clavicle pain/swelling IMPRESSION: Osteoporotic bones. Probable fracture medial end of left clavicle. Dictated by: Jesus Griffith M.D. on 05/29/2017 at 14:09 Approved by: Jesus Griffith M.D. on 05/29/2017 at 14:15 12-lead ECG Nonspecific ST changes, she is tachycardic in the monitor with rhythm between 103 to 113, regular rhythm regular rhythm Cardiac Echo Impressions Reason For Study: HISTORY OF CONGESTIVE HEART FAILURE Ordering Physician: HOSPITALIST SV Performed By: Misha Altamirano Referring Physician: Dr. Dami Oh Interpretation Summary The left ventricle is normal in size. Left ventricular systolic function is normal without focal wall motion abnormalities. The ejection fraction is estimated to be 60-65%. The right ventricle is borderline dilated. The right ventricular systolic function is normal. The right ventricular systolic pressure is estimated at 51 mmHg assuming a right atrial pressure of 8 mm Hg. There is severe biatrial enlargement. There is mild tricuspid regurgitation. There is mild pulmonic regurgitation. There is no other significant valvular heart disease. The aortic root is normal size. Reading Physician:PM Assessment & Plan This is a 82-year-old female with history of prior falls, cardiac history presenting today after suffering a fall ground-level fall due to unknown reasons , she has shown evidence of comminuted left clavicular fracture with displacement of fracture margin by 2 cm anteriorly at the fracture plane #Comminuted left clavicular fracture with displacement of fracture margin by 2 cm, present on admission -- Pain control with morphine 2-4 mg every 4 hours when necessary -- Oxycodone 4 mg every 4 hours when necessary -- Consulted orthopedic surgery, contacted Dr. Jenkins in the am, Dr. Craig Jenkins has seem the patient. he says he will recommend non-operative o/p management only. -- Consulted Dr. Tanmay George from Hem/Onc, he has seen the patient. Discussed coumadin with him, he says to hold for 1 week. Order PT/PTT/fibrinogen and thrombin labs. He does not feel she has a bleeding diathesis. -- Dr. George also recommends an MRI as pt may have been syncopal prior to experiencing the falls, ordered the MRI #Thyroid nodular goiter deviating the trachea, present on admission -- I have asked Dr. Garcia to consult trauma surgeon Dr. Willem Lauren from the ER -- Dr. Willem Lauren has seen the patient, states he will f/u with her in his office for thyroid. #chronic atrial fibrillation, present on admission, treatment ongoing. -Check INR upon arrival to the floor and then in the am, she is given vitamin K 5 mg by mouth, 2 units of FFP in the ER -Continue home medication Cardizem -- INR is 1.55 this am, gave her PO 25 mg and IV 5 mg Metoprolol to control rate , pel tele 120's some times -- Clearly needs an increase in home metoprolol, she was on digoxin in the past , unclear why it was discontinued. Possible tachy-beverley syndrome #Leukocytosis likely due to leukomoid reaction #chronic hypertension, present on admission, uncontrolled. -Continue patient's home medication Cardizem, metoprolol will need to be titrated up to 75 mg twice a day -- Monitor for heart block #HF PEF chronic active -- Continue torsemide 10 mg by mouth once a day, potassium supplementation -- Continue statin, metoprolol #Chronic hyperlipidemia active -- Continue home medication pravastatin. Disposition: home d/c if H&H stable, hold coumadin for one week, f/u with Drs. Jenkins and Kelechi as o/p Pain Evaluation: Adequate Pain Control Resuscitation Status: CPR: Attempt Resuscitation Time spent 30 min Citlali Henderson DO May 30, 2017 10:07
--- NOTE | 2017-05-31 06:27 | NUR ---
Tele/Pain Tele: Afib HR 114 with occasional PVCs per ekg monitor. Pt c/o discomfort to rt shoulder area and refused pain meds at this time instead requesting an ice pack. Bruising to LT arm continues without drainage noted. Pt needs IV access to RT arm and d/c of LT arm IV so that wearing LT arm sling is more comfortable. IV therapy contacted due to difficulty in placing IV. Care continues.
[2017-05-31 06:47] LABS: Mean Corpuscular Hemoglobin 29.4 pg (27.0-35.0); Mean Corpuscular Volume 89.8 fL (81-100)
[2017-05-31 07:08] LABS: INR 1.06 ratio
[2017-05-31] MEDS: Diltiazem CD 240 mg ER24 Capsule PO SCH (08:28)
[2017-05-31] MEDS: Tolterodine ER 4 mg ER24 Capsule PO SCH (08:30)
[2017-05-31] MEDS: 0.9% Sodium Chloride 1,000 ML IV SCH ×2 (09:52→23:13)
--- NOTE | 2017-05-31 10:46 | DRSVH ---
PROCEDURE: MRI STROKE PROTOCOL ([id number]) Pre- and post-contrast brain MRI, non-contrast brain MR angiogram, pre- and postcontrast neck MR joel ogram INDICATIONS: syncope, r/o infarct TECHNIQUE: Brain: Noncontrast axial T1 spin echo, axial T2 fast spin echo, sagittal and axial FLAIR, coronal T2 fast spin echo, axial gradient echo, axial diffusion and ADC through the brain. After the administr ation of contrast, axial 3D VIBE of the cranial vasculature and brain. Brain MRA: Non-contrast 3-D time of flight MR angiogram, with multiple izmsluj-krpvdbxqi-awmnglgoin (MIP) reformats performed. Neck MRA: Axial and sagittal TruFISP through the neck. Coronal dynamic MR angiogram during administ ration of contrast in the arterial and venous phases, with 3-dimenstional skszcig-fcxbcyqrk-utcexwnkv n (MIP) reformats constructed from subtraction images. COMPARISON: [facility], CT, CT CHEST W CON, 05/29/2017, 15:25. [facility], C T, CT BRAIN WO CON, 05/29/2017, 13:58. FINDINGS: Image quality: Excellent. BRAIN: CSF spaces: Ventricles are normal in size and shape. Basal cisterns are patent. No extra-axial flu id collections. Brain: No intracranial bleeds or mass effects. Martel-white matter interface is normal. Diffusion we ighted images show no acute ischemic insults. Brainstem appears normal. Normal intravascular flow v oids are present. No abnormal intracranial enhancement. Skull and face: Calvarial marrow signal is normal. Orbits appear normal. Sinuses: Sinuses and mastoids are clear. BRAIN MR ANGIOGRAM: Anterior circulation: Intracranial internal carotid arteries are normal in size and enhancement. Th e flow within the paired anterior cerebral arteries is normal and symmetric. The flow within the mid dle cerebral arteries is normal and symmetric. The anterior communicating artery is seen. No stenos es, occlusions, or aneurysms. Posterior circulation: The visualized portions of the vertebral arteries demonstrate normal caliber, and join to form a normal appearing basilar artery. The flow within the posterior cerebral arteries is normal and symmetric. No stenoses, occlusions, or aneurysms. NECK MR ANGIOGRAM: Carotids: Great vessels demonstrate a conventional anatomy as they arise from the aortic arch. The origins of the common carotid arteries appear patent. The calibers and courses of both common caroti d arteries are normal. The bifurcation regions appear normal bilaterally. The internal carotid balaji ade demonstrate normal course and caliber. Posterior circulation: The origins of the vertebral arteries appear patent. More superior portions of both vertebral arteries demonstrate normal course and mildly asymmetric caliber, left vertebral do minant,, and join to form a normal appearing basilar artery. Miscellaneous: Subclavian arteries appear patent. Pre-contrast images through the neck show no new soft tissue abnormalities when compared to the CT scan that was performed 05/29/17 which documented a very large left thyroid mass deviating the trachea rightward and narrowing the tracheal transverse di mension significantly.. IMPRESSION: BRAIN MRI: No acute or subacute stroke or trauma found. Source of syncopal episode is not seen. BRAIN MR ANGIOGRAM: No acute disease. Incidental note is made of a left vertebral artery dominance to the posterior circulation. NECK MR ANGIOGRAM: No significant stenosis. There is a very large thyroid mass on the left, documen mariann during recent CT scanning 2 days ago, with mass effect against the tracheal airway and deviating and narrowing at from left to right. Surgical consultation appears warranted for this lesion conside ring its large size and adjacent mass effect. This does deviate the adjacent vasculature, but does n ot appear to produce significant secondary stenosis at this time. The estimate of stenosis included in the report of the imaging study was calculated using the NASCET method Dictated by: Carlos Garcia M.D. on 05/31/2017 at 10:33 Approved by: Carlos Garcia M.D. on 05/31/2017 at 10:44
--- NOTE | 2017-05-31 11:14 | NUR ---
Social Work Note - Multidisciplinary rounds Per rounds today, pt is not medically stable for d/c - anticipate 1-2 more days. MRI scheduled. [employer] HELPER will continue to follow. ALFREDO Montgomery
--- NOTE | 2017-05-31 11:14 | NUR ---
LACTATION COORDINATOR witnessed [facility]'s signature SOY MontgomerySW
--- NOTE | 2017-05-31 11:22 | PROG NOTE ---
[address] [address] PROGRESS NOTE PATIENT: DEANNA MCQUEEN : 1935 MR#: [id number] ADMIT: 05/29/2017 JOB ID: [id number] DATE: 05/31/2017 SUBJECTIVE: The patient is being seen today for followup regarding a possible bleeding diathesis. Over the past 24 hours the patient's hemoglobin has remained stable in the normal 12-13 range. In addition, her repeat PT/INR and PTT all normal at 11.4, 1.06 and 28.2 respectively. Fibrinogen elevated at 420. Thrombin time pending. MRA of the brain done earlier this morning, report pending. Clinically, she is feeling well. She continues to have tachycardia and discomfort involving her left shoulder and clavicle, both being managed by hospitalist. PHYSICAL EXAMINATION: Vital signs showing a blood pressure of 120/67, temperature 36, pulse is 106, respiratory 18. She is saturating at 95% on room air. She is AO x3. Lying in bed in good spirits overall. Affect is appropriate. LABORATORY DATA: From May 31, 2017 showing a white cell count of 9.9, hemoglobin 13, platelet count of 231. Sodium 138, potassium 4.3, serum creatinine 0.75, calcium 9.8. ASSESSMENT AND PLAN: The patient is a very pleasant 82-year-old female presenting with a supratherapeutic INR, extravasation of blood after clavicular fracture and a drop in her hemoglobin from baseline. The patient on chronic Coumadin for atrial fibrillation which has been held. MRA completed, results pending. Evaluation of her coagulation cascade so far showing no evidence of impairment that would lead to a bleeding diathesis. Thrombin time pending. Recommend staying off her Coumadin for approximately one week's time pending her MRA. The patient should be followed up in the Oncology Clinic in the next 1-2 weeks.
--- NOTE | 2017-05-31 17:27 | NUR ---
NURSING DAYS 7-7 Patient MRI today negative, but HR remains 90-110, A-fib. Pain control for left clavicle fracture controlled with PO medications, bruising on anterior left chest. Plan to d/c patient home tomorrow and follow up with Dr Valentin for thyroid enlargement. NS 50, RA, H&H stable, and SCD's on.
--- NOTE | 2017-05-31 22:48 | PCM.PNMED ---
Subjective Date of Service May 31, 2017 Subjective Patient is seen and examined. Explained to her that all appropriate consults for orthopedics, hemonc as well as a thyroid have seen her, but because her elevated heart rate, we would like to keep her one more day to observe. She states that pain is controlled on oxycodone. Exam Vital Signs Vital Sign - Last Date Time Temp Pulse Resp B/P Pulse Ox O2 Delivery O2 Flow Rate FiO2 05/31/17 21:45 36.8 88 20 99/61 94 CPAP 4.00 Intake and Output 05/30/17 05/30/17 05/31/17 Cumulative From/Thru 15:00 23:00 07:00 05/29/17 13:20 - 05/31/17 06:21 Intake Total 1284 ml 587 ml 2635 ml Output Total 400 ml 850 ml 1650 ml Balance -400 ml 434 ml 587 ml 985 ml Intake Oral 1146 ml 1296 ml IV Total 138 ml 587 ml 1339 ml Output Urine Total 400 ml 850 ml 1650 ml # Voids 1 1 # Bowel Movements 0 0 Exam General: NAD, laying in bed, some what dyspneic male HEENT: NCAT, poor dentition Eyes: [place] conjunctivae. No ptosis, PERRL Neck: No masses, trachea midline, no thyromegaly Lungs: CTA with normal respiratory effort, no crackles or wheezes CV: RRR, no murmurs/rubs/gallops, normal PMI GI: Soft, non-tender with no hepatosplenomegaly MSK: Normal gait and station, no digital cyanosis Skin: Warm and dry. No rash, lesions or ulcers Psych: A&O X3, with appropriate affect IVs and Medications Medications Reviewed: Medications were reviewed in detail Lab and Diagnostics Result Diagram: 05/31/1762905/31/17629 X-Rays, CTs and MRIs IMPRESSION: 1. There is a comminuted medial left clavicle fracture, with displacement of the fracture margins by approximately 2 cm anteriorly at the fracture plane. The sternoclavicular joint appears free of traumatic disruption. 2. At time of CT scanning there is definite ongoing hemorrhage and a small area within the fracture margins, with overlying hematoma and extravasation of hemorrhage/bruising in the subcutaneous fat anterior to the left medial clavicle. The active bleeding is small in overall quantity at time of scanning , and this currently is producing a mild to moderate degree of immediate adjacent mass effect. 3. A complicating factor is the presence of a slowly enlarging large left thyroid mass, currently measuring up to 7.6 x 6.4 x 7.7 cm. This mass does not appear to have been displaced to a greater degree of rightward by the left medial clavicular fracture-related hematoma. Close clinical followup is recommended to ensure that further mass effect from expanding hematoma does not develop, given the pre-existing significant rightward deviation of the tracheal airway and at least 50% reduction in transverse dimension of the tracheal airway secondary to the thyroid mass. The degree of tracheal deviation and stenosis appears to have only slightly worsened from the comparison CT scan from 01/31/11. These findings were discussed in detail with the emergency room physician caring for the patient. Dictated by: Carlos Garcia M.D. on 05/29/2017 at 15:39 Approved by: Carlos Garcia M.D. on 05/29/2017 at 16:08 PROCEDURE: CT BRAIN WITHOUT CONTRAST ([id number]) INDICATIONS: 82 year-old female with head injury on Coumadin. IMPRESSION: No acute intracranial abnormalities. Left scalp hematoma formation. Dictated by: Dilan Romero M.D. on 05/29/2017 at 13:12 Approved by: Dilan Romero M.D. on 05/29/2017 at 13:15 PROCEDURE: X-RAY CHEST ONE VIEW ([id number]) IMPRESSION: 1. Acute disease is not appreciated in the lungs. 2. Probable thyroid nodule or goiter deviating the trachea from left to right, clinical correlation needed. 3. Medial left clavicular fracture. Dictated by: Jesus Griffith M.D. on 05/29/2017 at 14:16 Approved by: Jesus Griffith M.D. on 05/29/2017 at 14:17 PROCEDURE: X-RAY LEFT CLAVICLE, COMPLETE ([id number]) INDICATIONS: fall, left upper chest/clavicle pain/swelling IMPRESSION: Osteoporotic bones. Probable fracture medial end of left clavicle. Dictated by: Jesus Griffith M.D. on 05/29/2017 at 14:09 Approved by: Jesus Griffith M.D. on 05/29/2017 at 14:15 IMPRESSION: BRAIN MRI: No acute or subacute stroke or trauma found. Source of syncopal episode is not seen. BRAIN MR ANGIOGRAM: No acute disease. Incidental note is made of a left vertebral artery dominance to the posterior circulation. NECK MR ANGIOGRAM: No significant stenosis. There is a very large thyroid mass on the left, documented during recent CT scanning 2 days ago, with mass effect against the tracheal airway and deviating and narrowing at from left to right. Surgical consultation appears warranted for this lesion considering its large size and adjacent mass effect. This does deviate the adjacent vasculature , but does not appear to produce significant secondary stenosis at this time. The estimate of stenosis included in the report of the imaging study was calculated using the NASCET method Dictated by: Carlos Garcia M.D. on 05/31/2017 at 10:33 Approved by: Carlos Garcia M.D. on 05/31/2017 at 10:44 12-lead ECG Nonspecific ST changes, she is tachycardic in the monitor with rhythm between 103 to 113, regular rhythm regular rhythm Cardiac Echo Impressions Reason For Study: HISTORY OF CONGESTIVE HEART FAILURE Ordering Physician: [facility]OSPITALIST [facility] Performed By: Misha Altamirano Referring Physician: Dr. Dami Oh Interpretation Summary The left ventricle is normal in size. Left ventricular systolic function is normal without focal wall motion abnormalities. The ejection fraction is estimated to be 60-65%. The right ventricle is borderline dilated. The right ventricular systolic function is normal. The right ventricular systolic pressure is estimated at 51 mmHg assuming a right atrial pressure of 8 mm Hg. There is severe biatrial enlargement. There is mild tricuspid regurgitation. There is mild pulmonic regurgitation. There is no other significant valvular heart disease. The aortic root is normal size. Reading Physician:PM Assessment & Plan This is a 82-year-old female with history of prior falls, cardiac history presenting today after suffering a fall ground-level fall due to unknown reasons , she has shown evidence of comminuted left clavicular fracture with displacement of fracture margin by 2 cm anteriorly at the fracture plane #Comminuted left clavicular fracture with displacement of fracture margin by 2 cm, present on admission -- Pain control with morphine 2-4 mg every 4 hours when necessary -- Oxycodone 4 mg every 4 hours when necessary -- Consulted orthopedic surgery, contacted Dr. Jenkins in the am, Dr. Craig Jenkins has seem the patient. he says he will recommend non-operative o/p management only. -- Consulted Dr. Tanmay George from Hem/Onc, he has seen the patient. Discussed coumadin with him, he says to hold for 1 week. Order PT/PTT/fibrinogen and thrombin labs. He does not feel she has a bleeding diathesis. Thrombin is still pending. Dr. George can see the patient outpatient in 1-2 weeks for follow- up for Coumadin (please see his notes) -- Dr. George also recommends an MRI as pt may have been syncopal prior to experiencing the falls, ordered the MRI, showed no consent for an acute stroke or severe carotid stenosis -- Staff are requested to watch closely for pain being the reason for her tachycardia -- IV fluid hydration with 100 mL/h. Given tachycardia s,could be secondary to dehydration -- The Toprol dose is increased to 75 mg twice a day -- Discussed case with Dr. Morrow from cardiology, who recommends watching for other factors that would affect her heart rate, such as pain, anxiety dehydration. #Thyroid nodular goiter deviating the trachea, present on admission -- I have asked Dr. Garcia to consult trauma surgeon Dr. Willem Lauren from the ER -- Dr. Willem Lauren has seen the patient, states he will f/u with her in his office for thyroid. -- "IMPRESSION: Large left thyroid nodule. It has been there a long time. It is asymptomatic. She is unremarkable aware of it. Nothing emergent needs to be done regarding it. PLAN: After discharge she should be given an appointment to follow up with me in my office for further discussion. " #chronic atrial fibrillation, present on admission, treatment ongoing. -Check INR upon arrival to the floor and then in the am, she is given vitamin K 5 mg by mouth, 2 units of FFP in the ER -Continue home medication Cardizem -- INR is 1.55 05/30/17 am, gave her PO 25 mg and IV 5 mg Metoprolol to control rate, pel tele 120's some times -- Clearly needs an increase in home metoprolol, she was on digoxin in the past , unclear why it was discontinued. -- Rehydration with normal saline 100 mL/h, --Dr. George's recs: "valuation of her coagulation cascade so far showing no evidence of impairment that would lead to a bleeding diathesis. Thrombin time pending. Recommend staying off her Coumadin for approximately one week's time pending her MRA. The patient should be followed up in the Oncology Clinic in the next 1-2 weeks. " -- Rate is improving with increased toprol dose and iv fluid hydration on 05/31 #Leukocytosis likely due to leukemoid reaction #chronic hypertension, present on admission, uncontrolled. -Continue patient's home medication Cardizem, metoprolol will need to be titrated up to 75 mg twice a day -- Monitor for heart block #HF PEF chronic active -- Continue torsemide 10 mg by mouth once a day, potassium supplementation -- Continue statin, metoprolol #Chronic hyperlipidemia active -- Continue home medication pravastatin. Disposition: Waiting for her heart rate to settle down, home d/c if H&H stable, hold coumadin for one week, f/u with Doris Potter and Kelechi as o/p Pain Evaluation: Adequate Pain Control Resuscitation Status: CPR: Attempt Resuscitation Time spent 30 minutes Citlali Henderson DO May 31, 2017 22:48
[2017-06-01] VITALS (7 sets, daily range): BP systolic 115–133; BP diastolic 62–83; PULSE 86–128; RESP 20; O2SAT 93–98
[2017-06-01 06:33] LABS: Mean Corpuscular Volume 91.3 fL (81-100)
--- NOTE | 2017-06-01 07:27 | NUR ---
NOC note: Daughter Nitza stayed with pt through the night. Pt denies pain, left arm in sling at all times. Getting up to the BSC with SBA, daughter calling staff when needing assistance. Tele has been a fib rate in the 90s to low 100s through the night.
[2017-06-01] MEDS: Tolterodine ER 4 mg ER24 Capsule PO SCH (08:57)
--- NOTE | 2017-06-01 09:05 | PCM.PNMED ---
Subjective Date of Service Jun 01, 2017 Subjective Still in some pain, but this is iomrpomved, overall feels she is getting better. Daughter still having concerns for pt's ability to care for self at home , even with her and other siblings in house to support, given her underlying dementia. Pt keeps forgetting her shoulder is injured and attempts to use it. Exam Vital Signs Vital Sign - Last Date Time Temp Pulse Resp B/P Pulse Ox O2 Delivery O2 Flow Rate FiO2 06/01/17 08:54 36.7 115 20 119/62 98 Room Air 06/01/17 00:19 4.00 Intake and Output 05/31/17 05/31/17 06/01/17 Cumulative From/Thru 15:00 23:00 07:00 05/29/17 13:20 - 05/31/17 18:18 Intake Total 300 ml 1725 ml 4660 ml Output Total 400 ml 2050 ml Balance 300 ml 1325 ml 2610 ml Intake Oral 300 ml 1280 ml 2876 ml IV Total 445 ml 1784 ml Output Urine Total 400 ml 2050 ml # Voids 2 1 4 # Bowel Movements 0 General: Alert, Cooperative, Moderate Distress Mouth: Mucous Membr Moist/[place] Chest & Lungs: Clear to auscultation & percussion, Other ((+)extenive bruising of left claviciar region extending down chest/thorax. ) Cardiovascular: Other (Rapid rate, irregular rhythm No mruymurs.) Extremities: No cyanosis/clubbing/edma bilat Neurological: Grossly Neurologically Intact, Other ((+)baseline dementia,. mild -moderate) IVs and Medications Medications Reviewed: Medications were reviewed in detail Lab and Diagnostics Result Diagram: 06/01/17 0558 05/31/17 0630 X-Rays, CTs and MRIs IMPRESSION: 1. There is a comminuted medial left clavicle fracture, with displacement of the fracture margins by approximately 2 cm anteriorly at the fracture plane. The sternoclavicular joint appears free of traumatic disruption. 2. At time of CT scanning there is definite ongoing hemorrhage and a small area within the fracture margins, with overlying hematoma and extravasation of hemorrhage/bruising in the subcutaneous fat anterior to the left medial clavicle. The active bleeding is small in overall quantity at time of scanning , and this currently is producing a mild to moderate degree of immediate adjacent mass effect. 3. A complicating factor is the presence of a slowly enlarging large left thyroid mass, currently measuring up to 7.6 x 6.4 x 7.7 cm. This mass does not appear to have been displaced to a greater degree of rightward by the left medial clavicular fracture-related hematoma. Close clinical followup is recommended to ensure that further mass effect from expanding hematoma does not develop, given the pre-existing significant rightward deviation of the tracheal airway and at least 50% reduction in transverse dimension of the tracheal airway secondary to the thyroid mass. The degree of tracheal deviation and stenosis appears to have only slightly worsened from the comparison CT scan from 01/31/11. These findings were discussed in detail with the emergency room physician caring for the patient. Dictated by: Carlos Garcia M.D. on 05/29/2017 at 15:39 Approved by: Carlos Garcia M.D. on 05/29/2017 at 16:08 PROCEDURE: CT BRAIN WITHOUT CONTRAST ([id number]) INDICATIONS: 82 year-old female with head injury on Coumadin. IMPRESSION: No acute intracranial abnormalities. Left scalp hematoma formation. Dictated by: Dilan Romero M.D. on 05/29/2017 at 13:12 Approved by: Dilan Romero M.D. on 05/29/2017 at 13:15 PROCEDURE: X-RAY CHEST ONE VIEW ([id number]) IMPRESSION: 1. Acute disease is not appreciated in the lungs. 2. Probable thyroid nodule or goiter deviating the trachea from left to right, clinical correlation needed. 3. Medial left clavicular fracture. Dictated by: Jesus Griffith M.D. on 05/29/2017 at 14:16 Approved by: Jesus Griffith M.D. on 05/29/2017 at 14:17 PROCEDURE: X-RAY LEFT CLAVICLE, COMPLETE ([id number]) INDICATIONS: fall, left upper chest/clavicle pain/swelling IMPRESSION: Osteoporotic bones. Probable fracture medial end of left clavicle. Dictated by: Jesus Griffith M.D. on 05/29/2017 at 14:09 Approved by: Jesus Griffith M.D. on 05/29/2017 at 14:15 IMPRESSION: BRAIN MRI: No acute or subacute stroke or trauma found. Source of syncopal episode is not seen. BRAIN MR ANGIOGRAM: No acute disease. Incidental note is made of a left vertebral artery dominance to the posterior circulation. NECK MR ANGIOGRAM: No significant stenosis. There is a very large thyroid mass on the left, documented during recent CT scanning 2 days ago, with mass effect against the tracheal airway and deviating and narrowing at from left to right. Surgical consultation appears warranted for this lesion considering its large size and adjacent mass effect. This does deviate the adjacent vasculature , but does not appear to produce significant secondary stenosis at this time. The estimate of stenosis included in the report of the imaging study was calculated using the NASCET method Dictated by: Carlos Garcia M.D. on 05/31/2017 at 10:33 Approved by: Carlos Garcia M.D. on 05/31/2017 at 10:44 12-lead ECG Nonspecific ST changes, she is tachycardic in the monitor with rhythm between 103 to 113, regular rhythm regular rhythm Cardiac Echo Impressions Reason For Study: HISTORY OF CONGESTIVE HEART FAILURE Ordering Physician: [facility]PITALIST [facility] Performed By: Misha Altamirano Referring Physician: Dr. Dami Oh Interpretation Summary The left ventricle is normal in size. Left ventricular systolic function is normal without focal wall motion abnormalities. The ejection fraction is estimated to be 60-65%. The right ventricle is borderline dilated. The right ventricular systolic function is normal. The right ventricular systolic pressure is estimated at 51 mmHg assuming a right atrial pressure of 8 mm Hg. There is severe biatrial enlargement. There is mild tricuspid regurgitation. There is mild pulmonic regurgitation. There is no other significant valvular heart disease. The aortic root is normal size. Reading Physician:PM Assessment & Plan This is a 82-year-old female with history of prior falls, cardiac history presenting today after suffering a fall ground-level fall due to unknown reasons , she has shown evidence of comminuted left clavicular fracture with displacement of fracture margin by 2 cm anteriorly at the fracture plane #Comminuted left clavicular fracture with displacement of fracture margin by 2 cm, present on admission -- Pain control with morphine 2-4 mg every 4 hours when necessary -- Oxycodone 4 mg every 4 hours when necessary -- Consulted orthopedic surgery, contacted Dr. Jenkins in the am, Dr. Craig Jenkins has seem the patient. he says he will recommend non-operative o/p management only. -- Consulted Dr. Tanmay George from Hem/Onc, he has seen the patient. Discussed coumadin with him, he says to hold for 1 week. Order PT/PTT/fibrinogen and thrombin labs. He does not feel she has a bleeding diathesis. Thrombin is still pending. Dr. George can see the patient outpatient in 1-2 weeks for follow- up for Coumadin (please see his notes) -- Dr. George also recommends an MRI as pt may have been syncopal prior to experiencing the falls, ordered the MRI, showed no consent for an acute stroke or severe carotid stenosis -- Staff are requested to watch closely for pain being the reason for her tachycardia -- IV fluid hydration with 100 mL/h. Given tachycardia s,could be secondary to dehydration -- The Toprol dose is increased to 75 mg twice a day -- Discussed case with Dr. Morrow from cardiology, who recommends watching for other factors that would affect her heart rate, such as pain, anxiety dehydration. - Continue active pain MGMT, trial off IVFs with increased PO intake, continue to monitor, consider further medication titration should rate remain elevated. - Pts mobility is limited, will consult PT for further assessment to consider ideal disposition. #Thyroid nodular goiter deviating the trachea, present on admission -- I have asked Dr. Garcia to consult trauma surgeon Dr. Willem Lauren from the ER -- Dr. Willem Lauren has seen the patient, states he will f/u with her in his office for thyroid. -- "IMPRESSION: Large left thyroid nodule. It has been there a long time. It is asymptomatic. She is unremarkable aware of it. Nothing emergent needs to be done regarding it. PLAN: After discharge she should be given an appointment to follow up with me in my office for further discussion. " #chronic atrial fibrillation, present on admission, treatment ongoing. -Check INR upon arrival to the floor and then in the am, she is given vitamin K 5 mg by mouth, 2 units of FFP in the ER -Continue home medication Cardizem -- INR is 1.55 05/30/17 am, gave her PO 25 mg and IV 5 mg Metoprolol to control rate, pel tele 120's some times -- Clearly needs an increase in home metoprolol, she was on digoxin in the past , unclear why it was discontinued. -- Rehydration with normal saline 100 mL/h, --Dr. George's recs: "valuation of her coagulation cascade so far showing no evidence of impairment that would lead to a bleeding diathesis. Thrombin time pending. Recommend staying off her Coumadin for approximately one week's time pending her MRA. The patient should be followed up in the Oncology Clinic in the next 1-2 weeks. " -- Rate is improving with increased toprol dose and iv fluid hydration on 05/31, now IVFs dc'd, continue to monitor. #Leukocytosis likely due to leukemoid reaction #chronic hypertension, present on admission, uncontrolled. -Continue patient's home medication Cardizem, metoprolol will need to be titrated up to 75 mg twice a day -- Monitor for heart block #HF PEF chronic active -- Continue torsemide 10 mg by mouth once a day, potassium supplementation -- Continue statin, metoprolol #Chronic hyperlipidemia active -- Continue home medication pravastatin. Disposition: Waiting for her heart rate to settle down, home d/c if H&H stable, hold coumadin for one week, f/u with Doris Potter and Kelechi as o/p Pain Evaluation: Adequate Pain Control Resuscitation Status: CPR: Attempt Resuscitation Time spent 30 minutes Jesse Henry DO Jun 01, 2017 09:05
[2017-06-01] MEDS: Diltiazem CD 240 mg ER24 Capsule PO SCH (09:11)
--- NOTE | 2017-06-01 09:45 | NUR ---
IV intake IV fluid intake 1326 mL documented this morning day shift for manufacturing shift supervisor. Noc shift RN forgot to do IV intake.
--- NOTE | 2017-06-01 13:55 | NUR ---
Mentation and activity Pt. is alert and oriented with mild forgetfulness. Daughter assisted her with shower this morning. She denied L. clavicle/shoulder pain. L. arm sling is used to support L. arm. Pt. ambulated in the hallway x1 with SBA, no AD was needed. She C/O "not as strong" during ambulation. She walked half a loop in the hallway. Educated pt. on increasing activity to prevent deconditioning.
[2017-06-01] MEDS: 0.9% Sodium Chloride 1,000 ML IV SCH (15:54)
[2017-06-02] VITALS (9 sets, daily range): BP systolic 91–145; BP diastolic 58–93; PULSE 76–102; RESP 16–24; O2SAT 96–99
[2017-06-02] MEDS: 0.9% Sodium Chloride 1,000 ML IV SCH ×3 (04:49→19:42)
--- NOTE | 2017-06-02 06:21 | NUR ---
Tele, BM: Tele a fib in the 80s this morning. With activity last evening, heart rate did increase up to 130s, non sustaining. Large BM this morning after bowel meds and prune juice yesterday. Alert and oriented x3 most of this shift. Occasionally wakes from sleep disoriented and confused until reoriented.
[2017-06-02] MEDS: Tolterodine ER 4 mg ER24 Capsule PO SCH (08:02)
[2017-06-02] MEDS: Diltiazem CD 240 mg ER24 Capsule PO SCH (08:02)
--- NOTE | 2017-06-02 09:00 | NUR ---
Denies Pain Pt denies pain in L shoulder/clavicle. States that she has been forgetting about the fracture and using her arm, but finds the sling helpful as a reminder.
--- NOTE | 2017-06-02 09:21 | NUR ---
Social Work Note - Continued D/C planning BOILERMAKING SUPERVISOR spoke with pt's daughter Karen Og regarding home d/c plan. Karen voiced concerns that pt has been more confused at night and wanted help with finding inhome care givers for help. BOILERMAKING SUPERVISOR explained that caregivers are an option, but insurance will not cover that level of care. BOILERMAKING SUPERVISOR provided family with Senior Resources guide - Answered questions and provided support. Family states that they will set up a schedule to have someone with her for the first few days that pt is home and will provide support. Pt is not interested in Home Health - Wants to go home with family. Plan: Home with family - community resources provided. ALFRDEO Montgomery
--- NOTE | 2017-06-02 12:10 | NUR ---
Social Work Note - readiness for Discharge ADVERTISEMENT DISTRIBUTOR met with pt - pt's daughters also in the room. Family voiced concerns that they would like more help for her at home. ADVERTISEMENT DISTRIBUTOR provided support, active listened. Family lives nearby - Grand daughter lives on the property with Pt. Pt is eligible for home health - she is home bound and would benefit from HH RN PT [employer]. She is agreeable to Home Health services. She has used [facility]. ADVERTISEMENT DISTRIBUTOR provided choices list and family asked for new referral to Home Health. ADVERTISEMENT DISTRIBUTOR discussed with MD - He would like Home Health as well. ADVERTISEMENT DISTRIBUTOR called Alejandro [phone] from [facility] - Provided access - Alejandro states that he is able to accept referral. F2F printed. ADVERTISEMENT DISTRIBUTOR discussed with MD - Pt will be ready for d/c tomorrow. ADVERTISEMENT DISTRIBUTOR will continue to follow. Plan: Home with [facility] RN PT [employer] - transport with family. ALFREDO Montgomery
--- NOTE | 2017-06-02 16:19 | NUR ---
Mentation, Activity Pt alert and oriented this shift. Spent most of shift up in chair. Requires reminders to take in adequate liquids po.
--- NOTE | 2017-06-02 16:32 | PCM.PNMED ---
Subjective Date of Service Jun 02, 2017 Subjective Patient notes no acute complaints this morning. Pain in her left shoulder is minimal at this time especially if she does not move shoulder while in brace. She has had some difficulty remembering to keep drinking water today, and needs to be reminded repeatedly. Intravenous fluids were discontinued yesterday morning for oral challenge however we have in part due to patient's poor by mouth intake her pulse rate improved upper trending through the day, and poor urine output led to restarting intravenous fluids yesterday evening. Seems to have benefited her she is urinating more this morning and said she will continue to drink water today . Exam Vital Signs Vital Sign - Last Date Time Temp Pulse Resp B/P Pulse Ox O2 Delivery O2 Flow Rate FiO2 06/02/17 13:56 36.1 100 20 91/58 97 Room Air 06/01/17 20:55 4.00 Intake and Output 06/01/17 06/01/17 06/02/17 Cumulative From/Thru 15:00 23:00 07:00 05/29/17 13:20 - 06/02/17 06:03 Intake Total 1526 ml 859 ml 1272 ml 8317 ml Output Total 500 ml 450 ml 350 ml 3350 ml Balance 1026 ml 409 ml 922 ml 4967 ml Intake Oral 200 ml 700 ml 473 ml 4249 ml IV Total 1326 ml 159 ml 799 ml 4068 ml Output Urine Total 500 ml 450 ml 350 ml 3350 ml # Voids 5 2 11 # Bowel Movements 0 1 1 Exam General: Alert, Cooperative, Moderate Distress Mouth: Mucous Membr Moist/[place] Chest & Lungs: Clear to auscultation & percussion, (+)extensive bruising of left clavicular region extending down chest/thorax. Cardiovascular: Other (Rapid rate, irregular rhythm, no murmurs Neurological: Grossly Neurologically Intact, Other ((+)baseline dementia,. mild -moderate) IVs and Medications Medications Reviewed: Medications were reviewed in detail Lab and Diagnostics Result Diagram: 06/01/17 0558 05/31/17 0630 X-Rays, CTs and MRIs IMPRESSION: 1. There is a comminuted medial left clavicle fracture, with displacement of the fracture margins by approximately 2 cm anteriorly at the fracture plane. The sternoclavicular joint appears free of traumatic disruption. 2. At time of CT scanning there is definite ongoing hemorrhage and a small area within the fracture margins, with overlying hematoma and extravasation of hemorrhage/bruising in the subcutaneous fat anterior to the left medial clavicle. The active bleeding is small in overall quantity at time of scanning , and this currently is producing a mild to moderate degree of immediate adjacent mass effect. 3. A complicating factor is the presence of a slowly enlarging large left thyroid mass, currently measuring up to 7.6 x 6.4 x 7.7 cm. This mass does not appear to have been displaced to a greater degree of rightward by the left medial clavicular fracture-related hematoma. Close clinical followup is recommended to ensure that further mass effect from expanding hematoma does not develop, given the pre-existing significant rightward deviation of the tracheal airway and at least 50% reduction in transverse dimension of the tracheal airway secondary to the thyroid mass. The degree of tracheal deviation and stenosis appears to have only slightly worsened from the comparison CT scan from 01/31/11. These findings were discussed in detail with the emergency room physician caring for the patient. Dictated by: Carlos Garcia M.D. on 05/29/2017 at 15:39 Approved by: Carlos Garcia M.D. on 05/29/2017 at 16:08 PROCEDURE: CT BRAIN WITHOUT CONTRAST ([id number]) INDICATIONS: 82 year-old female with head injury on Coumadin. IMPRESSION: No acute intracranial abnormalities. Left scalp hematoma formation. Dictated by: Dilan Romero M.D. on 05/29/2017 at 13:12 Approved by: Dilan Romero M.D. on 05/29/2017 at 13:15 PROCEDURE: X-RAY CHEST ONE VIEW ([id number]) IMPRESSION: 1. Acute disease is not appreciated in the lungs. 2. Probable thyroid nodule or goiter deviating the trachea from left to right, clinical correlation needed. 3. Medial left clavicular fracture. Dictated by: Jesus Griffith M.D. on 05/29/2017 at 14:16 Approved by: Jesus Griffith M.D. on 05/29/2017 at 14:17 PROCEDURE: X-RAY LEFT CLAVICLE, COMPLETE ([id number]) INDICATIONS: fall, left upper chest/clavicle pain/swelling IMPRESSION: Osteoporotic bones. Probable fracture medial end of left clavicle. Dictated by: Jesus Griffith M.D. on 05/29/2017 at 14:09 Approved by: Jesus Griffith M.D. on 05/29/2017 at 14:15 IMPRESSION: BRAIN MRI: No acute or subacute stroke or trauma found. Source of syncopal episode is not seen. BRAIN MR ANGIOGRAM: No acute disease. Incidental note is made of a left vertebral artery dominance to the posterior circulation. NECK MR ANGIOGRAM: No significant stenosis. There is a very large thyroid mass on the left, documented during recent CT scanning 2 days ago, with mass effect against the tracheal airway and deviating and narrowing at from left to right. Surgical consultation appears warranted for this lesion considering its large size and adjacent mass effect. This does deviate the adjacent vasculature , but does not appear to produce significant secondary stenosis at this time. The estimate of stenosis included in the report of the imaging study was calculated using the NASCET method Dictated by: Carlos Garcia M.D. on 05/31/2017 at 10:33 Approved by: Carlos Garcia M.D. on 05/31/2017 at 10:44 12-lead ECG Nonspecific ST changes, she is tachycardic in the monitor with rhythm between 103 to 113, regular rhythm regular rhythm Cardiac Echo Impressions Reason For Study: HISTORY OF CONGESTIVE HEART FAILURE Ordering Physician: [facility] Performed By: Misha Altamirano Referring Physician: Dr. Dami Oh Interpretation Summary The left ventricle is normal in size. Left ventricular systolic function is normal without focal wall motion abnormalities. The ejection fraction is estimated to be 60-65%. The right ventricle is borderline dilated. The right ventricular systolic function is normal. The right ventricular systolic pressure is estimated at 51 mmHg assuming a right atrial pressure of 8 mm Hg. There is severe biatrial enlargement. There is mild tricuspid regurgitation. There is mild pulmonic regurgitation. There is no other significant valvular heart disease. The aortic root is normal size. Reading Physician:PM Assessment & Plan This is a 82-year-old female with history of prior falls, cardiac history presenting today after suffering a fall ground-level fall due to unknown reasons , she has shown evidence of comminuted left clavicular fracture with displacement of fracture margin by 2 cm anteriorly at the fracture plane #Comminuted left clavicular fracture with displacement of fracture margin by 2 cm, present on admission -- Pain control with Oxycodone 4 mg every 4 hours when necessary, will discontinue IV morphine given good PO intake. -- Consulted orthopedic surgery, contacted Dr. Jenkins in the am, Dr. Craig Jenkins has seem the patient. he says he will recommend non-operative o/p management only. -- Consulted Dr. Tanmay George from Hem/Onc, he has seen the patient. Discussed coumadin with him, he says to hold for 1 week. Order PT/PTT/fibrinogen and thrombin labs. He does not feel she has a bleeding diathesis. Thrombin is still pending. Dr. George can see the patient outpatient in 1-2 weeks for follow- up for Coumadin (please see his notes) -- Dr. George also recommends an MRI as pt may have been syncopal prior to experiencing the falls, ordered the MRI, showed no consent for an acute stroke or severe carotid stenosis -- Staff are requested to watch closely for pain being the reason for her tachycardia -- IV fluid hydration with 100 mL/h. Given tachycardia s,could be secondary to dehydration -- The Toprol dose is increased to 75 mg twice a day -- Discussed case with Dr. oMrrow from cardiology, who recommends watching for other factors that would affect her heart rate, such as pain, anxiety dehydration. - Continue active pain MGMT, trial off IVFs with increased PO intake, continue to monitor, consider further medication titration should rate remain elevated. - Pts mobility is limited, none the less cleared for home discharge. social work attempting to establish what home services are available for family support. #Thyroid nodular goiter deviating the trachea, present on admission -- Dr. Willem Lauren has seen the patient, states he will f/u with her in his office for thyroid. -- "IMPRESSION: Large left thyroid nodule. It has been there a long time. It is asymptomatic. She is unremarkable aware of it. Nothing emergent needs to be done regarding it. PLAN: After discharge she should be given an appointment to follow up with me in my office for further discussion. " #chronic atrial fibrillation, present on admission, treatment ongoing. -Check INR upon arrival to the floor and then in the am, she is given vitamin K 5 mg by mouth, 2 units of FFP in the ER -Continue home medication Cardizem -- INR is 1.55 05/30/17 am, gave her PO 25 mg and IV 5 mg Metoprolol to control rate, pel tele 120's some times -- Clearly needs an increase in home metoprolol, she was on digoxin in the past , unclear why it was discontinued. -- Rehydration with normal saline 100 mL/h, --Dr. George's recs: "valuation of her coagulation cascade so far showing no evidence of impairment that would lead to a bleeding diathesis. Thrombin time pending. Recommend staying off her Coumadin for approximately one week's time pending her MRA. The patient should be followed up in the Oncology Clinic in the next 1-2 weeks. " -- Rate had improved with increased toprol dose, btu pressures boarder line low. IVF discontinuation lead to further rise in pulse prompting restart. Pt on 2 AV blocking agents, may consider cardiac consult if this proves a persistent problem. - Ideally increased PO intake and further volume repletion overnight with IVFs will be sufficient #Leukocytosis likely due to leukemoid reaction #chronic hypertension, present on admission, uncontrolled. -Continue patient's home medication Cardizem, metoprolol will need to be titrated up to 75 mg twice a day -- Monitor for heart block #HF PEF chronic active -- Continue torsemide 10 mg by mouth once a day, potassium supplementation -- Continue statin, metoprolol #Chronic hyperlipidemia active -- Continue home medication pravastatin. Disposition: Waiting for her heart rate to settle down, home d/c if H&H stable, hold coumadin for one week, f/u with Doris Potter and Kelechi as o/p Pain Evaluation: Adequate Pain Control VTE Mechanical Devices: Intermittant Pneumatic CD Resuscitation Status: CPR: Attempt Resuscitation Time spent 35 minutes Jesse Henry DO Jun 02, 2017 16:32
--- NOTE | 2017-06-02 22:20 | NUR ---
Transfer Report given to ARNOLD Talley. Pt is transferred to [facility] in stable condition. Pt wants family members to be notified of the transfer in AM.
--- NOTE | 2017-06-03 02:08 | NUR ---
Transfer from [facility] [place] received phone report at [phone], pt arrived to floor per bed at 2207 accompanied by RN and PATROL MOTHER, pt alert, denies pain/discomfort, has own CPAP, IV on RARM with NS running, has arm sling for left arm, noted, multiple bruising on arms, clavicle and upper chest baseline on admit, oriented pt to room and call light system.
[2017-06-03 04:33] VITALS: BP 158/77; PULSE 79; RESP 18; O2SAT 99
[2017-06-03] MEDS: 0.9% Sodium Chloride 1,000 ML IV SCH (06:32)
[2017-06-03 08:10] VITALS: BP 131/76; PULSE 106; RESP 18; O2SAT 97
[2017-06-03] MEDS: Tolterodine ER 4 mg ER24 Capsule PO SCH (08:15)
[2017-06-03] MEDS: Diltiazem CD 240 mg ER24 Capsule PO SCH (08:16)
[2017-06-03 10:40] VITALS: PULSE 111
[2017-06-03 11:30] VITALS: BP 131/76; PULSE 105; O2SAT 97
[2017-06-03 14:40] VITALS: BP 120/60; PULSE 94; RESP 18; O2SAT 95
--- NOTE | 2017-06-03 15:14 | NUR ---
Social Work: Multidisciplinary Rounds / Readiness for d/c Data: Pt is on day 5 of hospitalization. Pt discussed in rounds. MD states pt likely ready for d/c today or tomorrow. F2[place] in [facility] [employer] FIBER PASTER OPERATOR folder for MD to complete. later told SOLID FIBER PASTER OPERATOR that pt will not d/c today. SOLID FIBER PASTER OPERATOR will continue to follow. Assessment: Pt who is independent at baseline. Plan: Pt will d/c home when medically stable, likely tomorrow, via POV with family with Carol WHITMORE RN/PT/SUPERMARKET MANAGER. F2F ready for MD to sign in [facility] [employer] FIBER PASTER OPERATOR folder. SOLID FIBER PASTER OPERATOR will continue to follow. GIULIANA Markham
--- NOTE | 2017-06-03 15:53 | PCM.PNMED ---
Subjective Date of Service Jun 03, 2017 Subjective Patient seen and examined today. Doing much better. HR better controlled. Vitals stable. Exam Vital Signs Vital Sign - Last Date Time Temp Pulse Resp B/P Pulse Ox O2 Delivery O2 Flow Rate FiO2 06/03/17 14:40 36.3 94 18 120/60 95 Room Air 06/03/17 04:33 4.00 Intake and Output 06/02/17 06/02/17 06/03/17 Cumulative From/Thru 15:00 23:00 07:00 05/29/17 13:20 - 06/03/17 06:39 Intake Total 1556 ml 711 ml 08320 ml Output Total 1 ml 650 ml 4001 ml Balance 1555 ml 61 ml 6583 ml Intake Oral 750 ml 4999 ml IV Total 806 ml 711 ml 5585 ml Output Urine Total 650 ml 4000 ml Stool Total 1 ml 1 ml # Voids 4 1 16 # Bowel Movements 1 2 Exam Exam General: Alert, Cooperative, relaxed Mouth: Mucous Membr Moist/[place] Chest & Lungs: Clear to auscultation & percussion Cardiovascular: Other (Rapid rate, irregular rhythm, no murmurs Neurological: Grossly Neurologically Intact, Other ((+)baseline dementia,. mild -moderate) Lab and Diagnostics Result Diagram: 06/01/17 0558 05/31/17 0630 X-Rays, CTs and MRIs IMPRESSION: 1. There is a comminuted medial left clavicle fracture, with displacement of the fracture margins by approximately 2 cm anteriorly at the fracture plane. The sternoclavicular joint appears free of traumatic disruption. 2. At time of CT scanning there is definite ongoing hemorrhage and a small area within the fracture margins, with overlying hematoma and extravasation of hemorrhage/bruising in the subcutaneous fat anterior to the left medial clavicle. The active bleeding is small in overall quantity at time of scanning , and this currently is producing a mild to moderate degree of immediate adjacent mass effect. 3. A complicating factor is the presence of a slowly enlarging large left thyroid mass, currently measuring up to 7.6 x 6.4 x 7.7 cm. This mass does not appear to have been displaced to a greater degree of rightward by the left medial clavicular fracture-related hematoma. Close clinical followup is recommended to ensure that further mass effect from expanding hematoma does not develop, given the pre-existing significant rightward deviation of the tracheal airway and at least 50% reduction in transverse dimension of the tracheal airway secondary to the thyroid mass. The degree of tracheal deviation and stenosis appears to have only slightly worsened from the comparison CT scan from 01/31/11. These findings were discussed in detail with the emergency room physician caring for the patient. Dictated by: Carlos Garcia M.D. on 05/29/2017 at 15:39 Approved by: Carlos Garcia M.D. on 05/29/2017 at 16:08 PROCEDURE: CT BRAIN WITHOUT CONTRAST ([id number]) INDICATIONS: 82 year-old female with head injury on Coumadin. IMPRESSION: No acute intracranial abnormalities. Left scalp hematoma formation. Dictated by: Dilan Romero M.D. on 05/29/2017 at 13:12 Approved by: Dilan Romero M.D. on 05/29/2017 at 13:15 PROCEDURE: X-RAY CHEST ONE VIEW ([id number]) IMPRESSION: 1. Acute disease is not appreciated in the lungs. 2. Probable thyroid nodule or goiter deviating the trachea from left to right, clinical correlation needed. 3. Medial left clavicular fracture. Dictated by: Jesus Griffith M.D. on 05/29/2017 at 14:16 Approved by: Jesus Griffith M.D. on 05/29/2017 at 14:17 PROCEDURE: X-RAY LEFT CLAVICLE, COMPLETE ([id number]) INDICATIONS: fall, left upper chest/clavicle pain/swelling IMPRESSION: Osteoporotic bones. Probable fracture medial end of left clavicle. Dictated by: Jesus Griffith M.D. on 05/29/2017 at 14:09 Approved by: Jesus Griffith M.D. on 05/29/2017 at 14:15 IMPRESSION: BRAIN MRI: No acute or subacute stroke or trauma found. Source of syncopal episode is not seen. BRAIN MR ANGIOGRAM: No acute disease. Incidental note is made of a left vertebral artery dominance to the posterior circulation. NECK MR ANGIOGRAM: No significant stenosis. There is a very large thyroid mass on the left, documented during recent CT scanning 2 days ago, with mass effect against the tracheal airway and deviating and narrowing at from left to right. Surgical consultation appears warranted for this lesion considering its large size and adjacent mass effect. This does deviate the adjacent vasculature , but does not appear to produce significant secondary stenosis at this time. The estimate of stenosis included in the report of the imaging study was calculated using the NASCET method Dictated by: Carlos Garcia M.D. on 05/31/2017 at 10:33 Approved by: Carlos Garcia M.D. on 05/31/2017 at 10:44 12-lead ECG Nonspecific ST changes, she is tachycardic in the monitor with rhythm between 103 to 113, regular rhythm regular rhythm Cardiac Echo Impressions Reason For Study: HISTORY OF CONGESTIVE HEART FAILURE Ordering Physician[facility] Performed By: Misha Altamirano Referring Physician: Dr. Dami Oh Interpretation Summary The left ventricle is normal in size. Left ventricular systolic function is normal without focal wall motion abnormalities. The ejection fraction is estimated to be 60-65%. The right ventricle is borderline dilated. The right ventricular systolic function is normal. The right ventricular systolic pressure is estimated at 51 mmHg assuming a right atrial pressure of 8 mm Hg. There is severe biatrial enlargement. There is mild tricuspid regurgitation. There is mild pulmonic regurgitation. There is no other significant valvular heart disease. The aortic root is normal size. Reading Physician:PM Assessment & Plan This is a 82-year-old female with history of prior falls, cardiac history presenting today after suffering a fall ground-level fall due to unknown reasons , she has shown evidence of comminuted left clavicular fracture with displacement of fracture margin by 2 cm anteriorly at the fracture plane #Comminuted left clavicular fracture with displacement of fracture margin by 2 cm, present on admission -- Pain control with Oxycodone 4 mg every 4 hours when necessary, will discontinue IV morphine given good PO intake. -- Consulted orthopedic surgery, contacted Dr. Jenkins in the am, Dr. Craig Jenkins has seem the patient. he says he will recommend non-operative o/p management only. -- Consulted Dr. Tanmay George from Hem/Onc, he has seen the patient. Discussed coumadin with him, he says to hold for 1 week. Order PT/PTT/fibrinogen and thrombin labs. He does not feel she has a bleeding diathesis. Thrombin is still pending. Dr. George can see the patient outpatient in 1-2 weeks for follow- up for Coumadin (please see his notes) -- Dr. George also recommends an MRI as pt may have been syncopal prior to experiencing the falls, ordered the MRI, showed no consent for an acute stroke or severe carotid stenosis -- Staff are requested to watch closely for pain being the reason for her tachycardia --IV hydration dc'd as patient tolerating po -- The Toprol dose is increased to 75 mg twice a day -- Discussed case with Dr. Morrow from cardiology, who recommends watching for other factors that would affect her heart rate, such as pain, anxiety dehydration. - Continue active pain MGMT, trial off IVFs with increased PO intake, continue to monitor, consider further medication titration should rate remain elevated. - Pts mobility is limited, none the less cleared for home discharge. social work attempting to establish what home services are available for family support. #Thyroid nodular goiter deviating the trachea, present on admission -- Dr. Willem Lauren has seen the patient, states he will f/u with her in his office for thyroid. -- "IMPRESSION: Large left thyroid nodule. It has been there a long time. It is asymptomatic. She is unremarkable aware of it. Nothing emergent needs to be done regarding it. PLAN: After discharge she should be given an appointment to follow up with me in my office for further discussion. " #chronic atrial fibrillation, present on admission, treatment ongoing. -Check INR upon arrival to the floor and then in the am, she is given vitamin K 5 mg by mouth, 2 units of FFP in the ER -Continue home medication Cardizem -- INR is 1.55 05/30/17 am, gave her PO 25 mg and IV 5 mg Metoprolol to control rate, pel tele 120's some times -- Clearly needs an increase in home metoprolol, she was on digoxin in the past , unclear why it was discontinued. -- Rehydration with normal saline 100 mL/h, --Dr. George's recs: "valuation of her coagulation cascade so far showing no evidence of impairment that would lead to a bleeding diathesis. Thrombin time pending. Recommend staying off her Coumadin for approximately one week's time pending her MRA. The patient should be followed up in the Oncology Clinic in the next 1-2 weeks. " -- Rate had improved with increased toprol dose, btu pressures boarder line low. IVF discontinuation lead to further rise in pulse prompting restart. Pt on 2 AV blocking agents, may consider cardiac consult if this proves a persistent problem. - Ideally increased PO intake and further volume repletion overnight with IVFs will be sufficient - to continue monitor till tomorrow, if HR stays <100 mostly, will discharge her and she can follow up with motion picture set up worker outpatient for further management. #Leukocytosis likely due to leukemoid reaction #chronic hypertension, present on admission, uncontrolled. -Continue patient's home medication Cardizem, metoprolol will need to be titrated up to 75 mg twice a day -- Monitor for heart block #HF PEF chronic active -- Continue torsemide 10 mg by mouth once a day, potassium supplementation -- Continue statin, metoprolol #Chronic hyperlipidemia active -- Continue home medication pravastatin. Disposition: Waiting for her heart rate to settle down, home d/c if H&H stable, hold coumadin for one week, f/u with Doris Potter and Kelechi as o/p VTE Mechanical Devices: Intermittant Pneumatic CD Resuscitation Status: CPR: Attempt Resuscitation Time spent 35 mins [place] MD Jun 03, 2017 15:53
--- NOTE | 2017-06-03 16:22 | NUR ---
Mobility/pain/HR Pt requires assist to stand d/t 1 arm in sling, otherwise indep, steady on feet. SBA provided. No c/o of pain in left shoulder s/p fall HR 90-122 MD keeping patient overnight to observe and monitor HR. PO fluids enc, UOP x3 in toilet.
[2017-06-03 21:00] VITALS: BP 143/72; PULSE 98; RESP 17; O2SAT 94
[2017-06-04 01:00] VITALS: PULSE 104
[2017-06-04 05:23] VITALS: BP 136/77; PULSE 69; RESP 17; O2SAT 95
--- NOTE | 2017-06-04 05:50 | NUR ---
Shift Note pt on tele, A-fib HR 90 to low 100s non sustained, encouraged fluid intake tonight, denies pain/discomfort, continues to wear left arm sleeve, call light in reach at all times.
[2017-06-04 05:56] VITALS: PULSE 84
--- NOTE | 2017-06-04 07:38 | PCM.DIMED ---
Discharge Instructions Date of Service Jun 04, 2017 Dates of Hospitalization May 29, 2017 at 18:48 Discharge Diagnosis Discharge Diagnosis Fractured clavicle, Afib Diet Discharge Diet: Heart Healthy Activity Discharge Activity: Limited until seen by PCP Call your provider Call your provider for: Fever or Chills, Chest pain Patient Instructions Follow-up plan Dr. Willem Martinez in 1-[address] Craig Jenkins in [address] Doris Baird in 1-2 weeks Mortgage Loan Reviewer in 1 week Follow-up with PCP in: 2 weeks [place]y [place] MD Jun 04, 2017 07:38
[2017-06-04 08:00] VITALS: BP 149/96; PULSE 110; PULSE 114; RESP 18; O2SAT 96
[2017-06-04] MEDS ORDERED: METO25TA6 PO (08:02)
[2017-06-04] MEDS ORDERED: OXYC5TAB72 PO (08:02)
[2017-06-04] MEDS: Diltiazem CD 240 mg ER24 Capsule PO SCH (09:36)
[2017-06-04] MEDS: Tolterodine ER 4 mg ER24 Capsule PO SCH (09:36)
--- NOTE | 2017-06-04 11:45 | NUR ---
Ambulation Pt amb the small loop of MOC. HR 95-129 SOB at end of ambulation SBA, pt just held onto VS machine for ambulation.
--- NOTE | 2017-06-04 12:30 | PCM.DC.MED ---
Discharge Summary Date of Service Jun 04, 2017 Dates of Hospitalization Date of Hospital Admission May 29, 2017 at 18:48 Date of Discharge: Jun 04, 2017 Providers: Admitting Physician: Citlali Henderson DO Primary Care Physician: Dami Oh MD Attending Physician: Emery Carrera MD Diagnosis at Time of Discharge Diagnosis at Time of Discharge Fractured clavicle, Afib Procedures XRay, CTs & MRIs IMPRESSION: 1. There is a comminuted medial left clavicle fracture, with displacement of the fracture margins by approximately 2 cm anteriorly at the fracture plane. The sternoclavicular joint appears free of traumatic disruption. 2. At time of CT scanning there is definite ongoing hemorrhage and a small area within the fracture margins, with overlying hematoma and extravasation of hemorrhage/bruising in the subcutaneous fat anterior to the left medial clavicle. The active bleeding is small in overall quantity at time of scanning , and this currently is producing a mild to moderate degree of immediate adjacent mass effect. 3. A complicating factor is the presence of a slowly enlarging large left thyroid mass, currently measuring up to 7.6 x 6.4 x 7.7 cm. This mass does not appear to have been displaced to a greater degree of rightward by the left medial clavicular fracture-related hematoma. Close clinical followup is recommended to ensure that further mass effect from expanding hematoma does not develop, given the pre-existing significant rightward deviation of the tracheal airway and at least 50% reduction in transverse dimension of the tracheal airway secondary to the thyroid mass. The degree of tracheal deviation and stenosis appears to have only slightly worsened from the comparison CT scan from 01/31/11. These findings were discussed in detail with the emergency room physician caring for the patient. Dictated by: Carlos Garcia M.D. on 05/29/2017 at 15:39 Approved by: Carlos Garcia M.D. on 05/29/2017 at 16:08 PROCEDURE: CT BRAIN WITHOUT CONTRAST ([id number]) INDICATIONS: 82 year-old female with head injury on Coumadin. IMPRESSION: No acute intracranial abnormalities. Left scalp hematoma formation. Dictated by: Dilan Romero M.D. on 05/29/2017 at 13:12 Approved by: Dilan Romero M.D. on 05/29/2017 at 13:15 PROCEDURE: X-RAY CHEST ONE VIEW ([id number]) IMPRESSION: 1. Acute disease is not appreciated in the lungs. 2. Probable thyroid nodule or goiter deviating the trachea from left to right, clinical correlation needed. 3. Medial left clavicular fracture. Dictated by: Jesus Griffith M.D. on 05/29/2017 at 14:16 Approved by: Jesus Griffith M.D. on 05/29/2017 at 14:17 PROCEDURE: X-RAY LEFT CLAVICLE, COMPLETE ([id number]) INDICATIONS: fall, left upper chest/clavicle pain/swelling IMPRESSION: Osteoporotic bones. Probable fracture medial end of left clavicle. Dictated by: Jesus Griffith M.D. on 05/29/2017 at 14:09 Approved by: Jesus Griffith M.D. on 05/29/2017 at 14:15 IMPRESSION: BRAIN MRI: No acute or subacute stroke or trauma found. Source of syncopal episode is not seen. BRAIN MR ANGIOGRAM: No acute disease. Incidental note is made of a left vertebral artery dominance to the posterior circulation. NECK MR ANGIOGRAM: No significant stenosis. There is a very large thyroid mass on the left, documented during recent CT scanning 2 days ago, with mass effect against the tracheal airway and deviating and narrowing at from left to right. Surgical consultation appears warranted for this lesion considering its large size and adjacent mass effect. This does deviate the adjacent vasculature , but does not appear to produce significant secondary stenosis at this time. The estimate of stenosis included in the report of the imaging study was calculated using the NASCET method Dictated by: Carlos Garcia M.D. on 05/31/2017 at 10:33 Approved by: Carlos Garcia M.D. on 05/31/2017 at 10:44 ECG [address] changes, she is tachycardic in the monitor with rhythm between 103 to 113, regular rhythm regular rhythm Cardiac Echo Impression Reason For Study: HISTORY OF CONGESTIVE HEART FAILURE Ordering Physician: HOSPITALIST [facility] Performed By: Misha Altamirano Referring Physician: Dr. Dami Oh Interpretation Summary The left ventricle is normal in size. Left ventricular systolic function is normal without focal wall motion abnormalities. The ejection fraction is estimated to be 60-65%. The right ventricle is borderline dilated. The right ventricular systolic function is normal. The right ventricular systolic pressure is estimated at 51 mmHg assuming a right atrial pressure of 8 mm Hg. There is severe biatrial enlargement. There is mild tricuspid regurgitation. There is mild pulmonic regurgitation. There is no other significant valvular heart disease. The aortic root is normal size. Reading Physician:PM Brief History This is a 82-year-old white female with past medical history of atrial fibrillation for which she is on Coumadin, congestive heart failure , hypertension, hyperlipidemia, restless leg syndrome is presenting after suffering a fall at home. Fall occured 1-2 hours prior to arrival. Patient does not know why or how she fell but daughter is thinking it may be that she shuffles her feet sometimes and her feet may have gotten called up in the carpet material. Patient has been falling has fallen 2 times in the last 4-5 years ago was She was crawling on the ground for 45 minutes trying to get the number to phone her son. Patient denies any recent infections, fevers, chills but states that she did not eat all day prior to this. She lives alone in a trailer with a granddaughter who lives nearby. Patient is able to walk independently at baseline patient says that right after she fell, she felt some numbness in her shoulder and felt pain thereafter. She says that she occasionally feels dizzy but denies any active chest pain, shortness of breath, diarrhea, constipation, nausea, vomiting. She denies urinary symptoms. She has no headaches. Patient denies losing consciousness during this fall. In the ER, white count is elevated at 14.7 creatinine 1.[address] changes chest x-ray showed medial left clavicular fracture, and thyroid nodular goiter deviating the trachea and left to right, osteoporosis. CT of chest was performed that showed comminuted left clavicular fracture with displacement of fracture by 2 cm anteriorly at the fracture plane. After patient had an echocardiogram in 01/16/16 that showed 60-65% ejection fraction, right ventricular dilation, 51 mm of pulmonary pressures, severe biatrial enlargement. Patient sees Dr. Najera in [place] for cardiology patient does not have a PCP but is trying to get in with [facility] residency Hospital Course This is a 82-year-old female with history of prior falls, cardiac history presenting today after suffering a fall ground-level fall due to unknown reasons , she has shown evidence of comminuted left clavicular fracture with displacement of fracture margin by 2 cm anteriorly at the fracture plane #Comminuted left clavicular fracture with displacement of fracture margin by 2 cm, present on admission -- Pain control with Oxycodone 4 mg every 4 hours when necessary -- Consulted orthopedic surgery, contacted Dr. Jenkins in the am, Dr. Craig Jenkins has seem the patient he says he will recommend non-operative o/p management only. -- Consulted Dr. Tanmay George from Hem/Onc, he has seen the patient. Discussed coumadin with him, he said hold warfarin 1 week at admission, its been one week , resuming warfarin --IV hydration dc'd as patient tolerating po -- The Toprol dose is increased to 75 mg twice a day, HR better controlled, although she has few episodes here and there where she jumps to 120s -- team had Discussed case with Dr. Morrow from cardiology, who recommends watching for other factors that would affect her heart rate, such as pain, anxiety dehydration. #Thyroid nodular goiter deviating the trachea, present on admission -- Dr. Willem Lauren has seen the patient, states he will f/u with her in his office for thyroid. -- "IMPRESSION: Large left thyroid nodule. It has been there a long time. It is asymptomatic. She is unremarkable aware of it. Nothing emergent needs to be done regarding it. PLAN: After discharge she should be given an appointment to follow up with me in my office for further discussion. " #chronic atrial fibrillation, present on admission, treatment ongoing. - metoprolol increased to 75mg BID, HR better controlled, follow up with her sofa cover inspector to manage afib --Dr. George's recs: "valuation of her coagulation cascade so far showing no evidence of impairment that would lead to a bleeding diathesis. Thrombin time pending. Recommend staying off her Coumadin for approximately one week's time pending her MRA. The patient should be followed up in the Oncology Clinic in the next 1-2 weeks. " -- INR monitoring outpatient, Home health setup for that -- Coumadin restarted since MRI, MRA all negative #Leukocytosis likely due to leukemoid reaction #chronic hypertension, present on admission, uncontrolled. -Continue patient's home medication Cardizem, metoprolol titrated up to 75 mg twice a day #HF PEF chronic active -- Continue torsemide 10 mg by mouth once a day, potassium supplementation -- Continue statin, metoprolol #Chronic hyperlipidemia active -- Continue home medication pravastatin. Disposition: Follow ups as per discharge instructions. Family understands and agrees with the plan. Exam Vital Signs (Last) Date Time Temp Pulse Resp B/P Pulse Ox O2 Delivery O2 Flow Rate FiO2 06/04/17 08:00 36.5 110 18 149/96 96 Room Air 06/04/17 05:38 4.00 Test 05/29/17 14:15 05/29/17 17:30 05/30/17 04:20 05/31/17 06:30 Magnesium Level 2.3mg/dL (1.6-2.6) Urine Color Yellow (YELLOW) Urine Appearance Clear (CLEAR,HAZY) Urine pH 5.0 (5.0-8.0) Urine Specific [place] 1.010 (1.003-1.035) Urine Protein Negativemg/dL (NEG,TRACE) Urine Glucose (UA) Negativemg/dL (NEGATIVE) Urine Ketones Negativemg/dL (NEGATIVE) Urine Occult Blood Trace (NEGATIVE) Urine Nitrite Negative (NEGATIVE) Urine Bilirubin Negative (NEGATIVE) Urine Urobilinogen Normalmg/dL (NORMAL) Urine Leukocyte Esterase Small (NEGATIVE) Urine RBC 3-10/hpf (0-2) Urine WBC 6-10/hpf (0-5) Urine Epithelial Cells Few/hpf (NONE-MOD) Urine Crystals None seen (NONE SEEN) Urine Bacteria Moderate/hpf (NONE-FEW) Urine Hyaline Casts None/lpf (NONE) Urine Granular Casts None seen (NONE SEEN) Urine Waxy Casts None seen (NONE SEEN) Urine Red Blood Cell Casts None seen (NONE SEEN) Urine White Blood Cell Casts None seen (NONE SEEN) Urine Mucus None seen (None Seen) Urine Trichomonas None seen (NONE SEEN) Urine Yeast None (NONE SEEN) Urinalysis Comment None Urine Culture Reflexed Indicated Neutrophils (%) (Auto) 58.0% (40-74) Lymphocytes (%) (Auto) 29.2% (14-46) Monocytes (%) (Auto) 11.0% (4-12) Eosinophils (%) (Auto) 1.4% (0-5) Basophils (%) (Auto) 0.2% (0-3) Total Bilirubin 1.0mg/dL (0.0-1.2) Aspartate Amino Transf (AST/SGOT) 21U/L (0-50) Alanine Aminotransferase (ALT/SGPT) 20U/L (0-32) Alkaline Phosphatase 114U/L (25-165) Total Protein 6.9g/dL (6.4-8.4) Albumin 4.0g/dL (3.4-5.0) Prothrombin Time 11.4sec (8.1-12.5) Prothromb Time International Ratio 1.06ratio Activated Partial Thromboplast Time 28.2sec (22.8-33.0) Thrombin Time 19.2sec (0.0-23.0) Fibrinogen 420mg/dL (157-380) Sodium Level 138mEq/L (134-144) Potassium Level 4.3mEq/L (3.5-5.2) Chloride Level 101mEq/L (97-108) Carbon Dioxide Level 25mmol/L (18-29) Blood Urea Nitrogen 14mg/dL (8-27) Creatinine 0.75mg/dL (0.57-1.00) Estimat Glomerular Filtration Rate 106mL/min (>59) Glucose Level 117mg/dL (60-99) Calcium Level 9.8mg/dL (8.5-10.1) Test 06/01/17 05:58 White Blood Count 8.8th/mm3 (3.8-10.1) Red Blood Count 4.16mil/mm3 (3.90-5.20) Hemoglobin 12.5g/dL (12.0-15.6) Hematocrit 38.0% (35.0-46.0) Mean Corpuscular Volume 91.3fL (81-100) Mean Corpuscular Hemoglobin 30.0pg (27.0-35.0) Mean Corpuscular Hemoglobin Concent 32.9% (32.0-37.0) Red Cell Distribution Width 14.0% (12.3-15.4) Platelet Count 211bil/L (150-400) Discharge Medications Discharge Medications Aspirin (Aspirin) 81 Mg Tablet 81 MG PO DAILY (Reported) Cholecalciferol (Vitamin D3) (Vitamin D) 1,000 Unit Tablet 2,000 UNIT PO DAILY ( Reported) Diltiazem ER (Cardizem CD) 240 Mg Cap.er.24h 240 MG PO DAILY (Reported) Glucosamine Sulfate 2Kcl (Glucosamine) 1,000 Mg Tablet 1,500 MG PO BID (Reported ) Metoprolol Tartrate (Metoprolol Tartrate) 25 Mg Tablet 50 MG PO BID (Reported) Metoprolol Tartrate (Metoprolol Tartrate) 25 Mg Tablet 75 MG PO BID Prescribed by: EMERY CARRERA MD Multivitamin (Once Daily) 1 Each Tablet 1 EACH PO DAILY (Reported) [place]-3/Dha/Epa/Fish Oil (Fish Oil 1,000 mg Softgel) 1 Each Capsule 1 EACH PO BID (Reported) Potassium Chloride ER (Klor-Con 10) 10 Meq Tablet 30 MEQ PO BID (Reported) Pravastatin (Pravastatin) 40 Mg Tablet 40 MG PO HS (Reported) Tolterodine Tartrate ER (Detrol LA) 4 Mg Capsule 4 MG PO DAILY (Reported) Torsemide (Torsemide) 10 Mg Tablet Unknown Dose PO DAILY (Reported) Warfarin Sodium (Warfarin Sodium) 2.5 Mg Tablet 2.5 MG PO SUN,MON,WED,FRI ( Reported) Warfarin Sodium (Warfarin Sodium) 5 Mg Tablet 5 MG PO TUES,THURS,SAT (Reported) As needed oxyCODONE (oxyCODONE) 5 Mg Tablet 5 MG PO Q6H PRN PRN For Moderate Pain Prescribed by: EMERY CARRERA MD Followup Plan Follow-up plan Dr. Willem Martinez in 1-[address] Craig Jenkins in [address] Doris Baird in 1-2 weeks Line Construction Supervisor in 1 week Discharge Diet: Heart Healthy Discharge Activity: Limited until seen by PCP Follow-up with PCP in: 2 weeks Time spent 45 mins Emery Carrera MD Jun 04, 2017 12:30
--- NOTE | 2017-06-04 13:49 | NUR ---
Social Work: Discharge/Multidisciplinary Rounds D: Pt discussed in am rounds. Pt is medically stable for discharge home with home health through [facility] for RN, PT, and BRAKESHOE REPAIRER. F2F completed. Capacity for self care discussed- no concerns noted at this time. HEAD MACHINIST met with the patient at bedside. She states that she has no concerns with her discharge plan. HEAD MACHINIST informed her that [facility] will be contacting her to schedule an intake time. She will await their phone call. Pt requested HEAD MACHINIST update her son, Everette. HEAD MACHINIST left message for pt's son requesting return phone call to inform him of discharge plan. He will be transporting the patient home. t/c to Alejandro Gray with [facility] to inform him of pt's discharge. he has received F2F that was faxed this morning and will follow up with the patient. A: Pt who is I at Baseline. P: Anticipate pt to discharge home with [facility] for RN, PT, BRAKESHOE REPAIRER. Pt's son to transport. GIULIANA Keller
--- NOTE | 2017-06-04 14:57 | NUR ---
Discharge Reviewed DC instructions reviewed with patient and son. Answered all questions. Scripts sent in packet. JAMARCUS Chavez able to speak with Son prior to DC. Pt taken out in w/ch to home with family.
== END 2017-06-04 14:35 | disposition home health service (06) | DRG 563 ==
LOC: SED 13:16 → MPC 18:48 → MOC 06-02 21:40
PROVIDERS: ADMIT Family Medicine; ATTEND Internal Medicine
PROC: 30233K1 Transfusion of Nonautologous Frozen Plasma into Peripheral Vein, Percutaneous Approach (ICD-10-PCS; principal; 2017-05-29)
DX: S42.002A Fracture of unspecified part of left clavicle, initial encounter for closed fracture (principal); I50.32 Chronic diastolic (congestive) heart failure; Z79.82 Long term (current) use of aspirin; Z79.01 Long term (current) use of anticoagulants; W18.30XA Fall on same level, unspecified, initial encounter; Y93.01 Activity, walking, marching and hiking; Y92.019 Unspecified place in single-family (private) house as the place of occurrence of the external cause; R79.1 Abnormal coagulation profile; I48.2 Chronic atrial fibrillation; E78.5 Hyperlipidemia, unspecified; E04.1 Nontoxic single thyroid nodule; I10 Essential (primary) hypertension